=== PATIENT | male | born 1945 | race Caucasian/White ===

== ENCOUNTER 2018-05-02 10:43 | Inpatient (IN) | payer MEDICARE, BC ==
[~2018-05-02 10:43] MED LIST: Acetaminophen 325 MG Tab PO SCH; Acetaminophen/oxyCODONE 325-5 MG Tab PO PRN; Aspirin 325 MG Tab.EC PO SCH; Bisacodyl 5 MG Tab PO PRN; Bupivacaine 0.25% 30 ML SDV ONE; Cyclobenzaprine 10 MG Tab PO PRN; Docusate Sodium 100 MG Cap PO SCH; Iodine/Sodium Iodide 2% Tincture 30 ML Bottle ONE; Ketorolac 15 MG/ML SDV IVPUSH PRN; Lactated Ringers 1,000 ML IV SCH; Lidocaine 1%/Sod Bicarbonate in NS 8.4% 1 ML Syringe IDERM PRN; Magnesium Hydroxide 400 MG/5 ML Susp 30 ML Cup PO PRN; Morphine 2 MG/ML Syringe IVPUSH PRN; Morphine 4 MG/ML Syringe IVPUSH PRN; Morphine 8 MG, EPINEPHrine 0.3 MG, Cefuroxime 750 MG, Ketorolac 30 MG, Sodium Chloride ... ONE; Naloxone 0.4 MG/ML SDV IVPUSH PRN; Ondansetron 4 MG/2 ML SDV IVPUSH PRN; Pregabalin 25 MG Cap PO SCH; Sennosides 8.6 MG Tab PO PRN; Sodium Chloride 0.9% 10 ML Syringe FLUSH PRN; Vancomycin 1 GM SDV ONE; ceFAZolin 1 GM Vial ONE; ceFAZolin 2 GM in Premix Bag 1 BAG IV SCH; diphenhydrAMINE 50 MG/ML SDV IVPUSH PRN; oxyCODONE ER 10 MG TAB.ER PO SCH
[2018-05-02] MEDS ORDERED: Acetaminophen 325 MG Tab PO SCH (11:00)
[2018-05-02] MEDS ORDERED: Pregabalin 25 MG Cap PO SCH (11:00)
[2018-05-02] MEDS ORDERED: oxyCODONE ER 10 MG TAB.ER PO SCH (11:00)
[2018-05-02] MEDS ORDERED: Lidocaine 1%/Sod Bicarbonate in NS 8.4% 1 ML Syringe IDERM PRN (11:18)
[2018-05-02] MEDS ORDERED: Sodium Chloride 0.9% 10 ML Syringe FLUSH PRN (11:18)
[2018-05-02] MEDS ORDERED: Propranolol 60 MG Cap.ER PO SCH (11:29)
[2018-05-02] MEDS ORDERED: Lactated Ringers 1,000 ML IV SCH (11:30)
[2018-05-02] MEDS ORDERED: Lidocaine 1% 4 ML ONE (11:35)
[2018-05-02] MEDS ORDERED: Ketamine 500 mg/10 ML MDV ONE (11:35)
[2018-05-02] MEDS ORDERED: Propofol 200 MG/20 ML SDV ONE ×2 (11:35→12:24)
[2018-05-02] MEDS ORDERED: Midazolam 1 MG/ML 2 ML SDV ONE (11:35)
[2018-05-02] MEDS ORDERED: fentaNYL 100 MCG/2 ML SDV ONE (11:35)
[2018-05-02] MEDS ORDERED: ceFAZolin 1 GM Vial ONE ×2 (11:35→12:35)
--- NOTE | 2018-05-02 11:35 | PCM.PREANE ---
Preanesthetic Assessment - Procedure Proposed Procedure: right total knee - Anesthesia/Transfusion/Family Hx Anesthesia History: Prior Anesthesia Without Reaction Family History of Anesthesia Reaction: No Transfusion History: No Prior Transfusion(s) - Review of Systems General: No Symptoms Pulmonary: No Symptoms Cardiovascular: No Symptoms Gastrointestinal: No Symptoms Neurological: No Symptoms Other: Reports: Thyroid Problems, Sinus Problem (stuffy at times) - Physical Assessment NPO Status Date: 05/02/18 NPO Status Time: 02:00 O2 Sat by Pulse Oximetry: 95 Respiratory Rate: 20 Vital Signs: Last Vital Signs Temp 99.5 F 05/02/18 10:55 Pulse 78 05/02/18 10:55 Resp 20 05/02/18 10:55 BP 150/86 H 05/02/18 10:55 Pulse Ox 95 05/02/18 10:55 Height: 5 ft 10 in Weight: 92.986 kg ASA Class: 3 Mental Status: Alert & Oriented x3 Airway Class: Mallampati = 1 Dentition: Reports: Normal Dentition (front teeth are capped and sometimes come off) Thyro-Mental Finger Breadths: 3 Mouth Opening Finger Breadths: 3 ROM/Head Extension: Full Lungs: Clear to Auscultation, Normal Respiratory Effort Cardiovascular: Regular Rate, Regular Rhythm - Allergies Allergies/Adverse Reactions: Allergies Allergy/AdvReac Type Severity Reaction Status Date / Time No Known Allergies Allergy Verified 05/01/18 14:11 - Blood Blood Available: No - Anesthesia Plan Beta Jose: Propranolol Med Last Dose Date: 05/02/18 Med Last Dose Time: 11:45 - Acknowledgements Anesthesia Type Planned: Spinal Pt an Appropriate Candidate for the Planned Anesthesia: Yes Alternatives and Risks of Anesthesia Discussed w Pt/Guardian: Yes Pt/Guardian Understands and Agrees with Anesthesia Plan: Yes PreAnesthesia Questionnaire HEENT History: Reports: Impaired Vision, Other (See Below) Other HEENT History: wears glasses, has looth teeth Cardiovascular History: Reports: High Cholesterol, Hypertension, Other (See Below) Other Cardiovascular History: hyperlipidemia, hyponatremia Respiratory History: Reports: Sleep Apnea, SOB Gastrointestinal History: Reports: None Genitourinary History: Reports: BPH, Renal Calculus Other Genitourinary History: Nocturia, Cystine, [employer]GER [employer] History: Reports: None Musculoskeletal History: Reports: Osteoarthritis, Other (See Below) Other Musculoskeletal History: right knee degenerative joing disease Neurological History: Reports: Other (See Below) Other Neuro History: tremors Psychiatric History: Reports: None Endocrine/Metabolic History: Reports: Hypothyroidism Hematologic History: Reports: None Immunologic History: Reports: None Oncologic (Cancer) History: Reports: None Dermatologic History: Reports: Psoriasis, Urticaria - Past Surgical History Head Surgeries/Procedures: Reports: None Cardiovascular Surgical History: Reports: None Respiratory Surgical History: Reports: None GI Surgical History: Reports: Colonoscopy, EGD Male Surgical History: Reports: Lithotripsy (ESWL), Other (See Below) Other Male Surgeries/Procedures: urethra stent, multiple surgeries for kidney stones Endocrine Surgical History: Reports: Parathyroidectomy Neurological Surgical History: Reports: None Oncologic Surgical History: Reports: None Dermatological Surgical History: Reports: None - SUBSTANCE USE Smoking Status *Q: Former Smoker (stopped 1979) Tobacco Use Within Last Twelve Months: No, Snuff/Dip (chewed today) Second Hand Smoke Exposure: No Days Per Week of Alcohol Use: 7 (beer) Number of Drinks Per Day: 1 Total Drinks Per Week: 7 Recreational Drug Use History: No - HOME MEDS Home Medications: Home Meds Acetaminophen/oxyCODONE [Percocet 325-5 MG] 1 - 2 tab PO Q6H PRN 03/29/18 [ History] Amoxicillin 500 mg PO ASDIRECTED 03/29/18 [History] Aspirin [Ecotrin] 325 mg PO BID 03/29/18 [History] Clobetasol [Clobetasol 0.05%] 1 dose TOP BID PRN 03/29/18 [History] Finasteride 5 mg PO 1200 03/29/18 [History] Levothyroxine 125 mcg PO DAILY 03/29/18 [History] Lisinopril 10 mg PO DAILY 03/29/18 [History] Propranolol [Inderal] 60 mg PO DAILY 03/29/18 [History] Simvastatin [Zocor] 20 mg PO BEDTIME 03/29/18 [History] Tamsulosin [Flomax] 0.4 mg PO 1200 03/29/18 [History] amLODIPine Besylate [Amlodipine Besylate] 5 mg PO BEDTIME 03/29/18 [History] Citric Acid/Sodium Citrate [Sod Citrate-Citric Acid Soln] 30 ml PO TID 05/01/18 [History] Sodium Bicarbonate 650 mg PO BID 05/01/18 [History] Acetaminophen/oxyCODONE [Percocet 325-5 MG] 1 - 2 tab PO Q6H PRN #60 tablet 07/13 [Rx] Aspirin [Ecotrin] 325 mg PO BID #84 tab.ec 05/03/18 [Rx] Bisacodyl [Dulcolax] 5 mg PO DAILY PRN tablet 05/03/18 [Rx] Docusate Sodium [Colace] 100 mg PO BID cap 05/03/18 [Rx] Famotidine [Pepcid] 20 mg PO Q12H tablet 05/03/18 [Rx] Magnesium Hydroxide [Milk of Magnesia] 30 ml PO BID PRN cup 05/03/18 [Rx] Sennosides [Senna] 8.6 mg PO BID PRN tablet 05/03/18 [Rx] - CURRENT (IN HOUSE) MEDS Current Meds: Current Medications Acetaminophen (Tylenol) 975 mg PO ONETIME MICHAEL Aspirin (Ecotrin) 325 mg PO BID MICHAEL Bisacodyl (Dulcolax) 5 mg PO DAILY PRN PRN Reason: Constipation Cyclobenzaprine HCl (Flexeril) 10 mg PO TID PRN PRN Reason: Spasms Docusate Sodium (Colace) 100 mg PO BID MICHAEL Famotidine (Pepcid) 20 mg PO Q12H [facility] Cefazolin Sodium/Dextrose 2 gm (/ Premix) 50 mls @ 100 mls/hr IV Q8H [facility] Stop: 05/02/18 23:44 Lactated Ringer's (Ringers, Lactated) 1,000 mls @ 125 mls/hr IV ASDIRECTED [facility] Last Admin: 05/02/18 11:15 Dose: 125 mls/hr Ketorolac Tromethamine (Toradol) 15 mg IVPUSH Q6H PRN PRN Reason: Pain Lidocaine/Sodium Bicarbonate (Buffered Lidocaine 1% In Ns 8.4%) 0.25 ml IDERM ONETIME PRN PRN Reason: Prior to IV Start Stop: 05/02/18 16:00 Last Admin: 05/02/18 11:09 Dose: 0.25 ml Magnesium Hydroxide (Milk Of Magnesia) 30 ml PO BID PRN PRN Reason: Constipation Morphine Sulfate (Morphine) 2 mg IVPUSH Q2H PRN PRN Reason: Breakthrough Pain Naloxone HCl (Narcan) 0.1 mg IVPUSH Q5M PRN PRN Reason: Oversedation Ondansetron HCl (Zofran) 4 mg IVPUSH Q6H PRN PRN Reason: Nausea/Vomiting Oxycodone HCl (Oxycontin) 10 mg PO ONETIME [facility] Oxycodone/Acetaminophen (Percocet 325-5 Mg) 1 - 2 tab PO Q4H PRN PRN Reason: Pain Pregabalin (Lyrica) 50 mg PO ONETIME [facility] Propranolol HCl (Inderal La) 60 mg PO ONETIME [facility] Senna (Senna) 8.6 mg PO BID PRN PRN Reason: Constipation Sodium Chloride (Saline Flush) 10 ml FLUSH ASDIRECTED PRN PRN Reason: Keep Vein Open Discontinued Medications Acetaminophen (Tylenol) 975 mg PO ONETIME [facility] Stop: 04/01/18 18:00 Aspirin (Ecotrin) 325 mg PO BID [facility] Bisacodyl (Dulcolax) 5 mg PO DAILY PRN PRN Reason: Constipation Bupivacaine HCl (Marcaine 0.25%) Confirm Administered Dose 30 ml .ROUTE .STK- MED ONE Stop: 04/01/18 08:28 Cefazolin Sodium (Ancef) Confirm Administered Dose 2 gm .ROUTE .STK-MED ONE Stop: 04/01/18 08:28 Morphine Sulfate 8 mg/Epinephrine HCl 0.3 mg/Cefuroxime Sodium 750 mg/Ketorolac Tromethamine 30 mg/Sodium Chloride 27.9 ml 0 mg .XX ONETIME ONE Stop: 04/01/18 10:01 Morphine Sulfate 8 mg/Epinephrine HCl 0.3 mg/Cefuroxime Sodium 750 mg/Ketorolac Tromethamine 30 mg/Sodium Chloride 27.9 ml 0 mg .XX ONETIME ONE Stop: 05/02/18 07:09 Morphine Sulfate 8 mg/Epinephrine HCl 0.3 mg/Cefuroxime Sodium 750 mg/Ketorolac Tromethamine 30 mg/Sodium Chloride 27.9 ml 0 mg .XX ONETIME ONE Stop: 05/02/18 07:31 Cyclobenzaprine HCl (Flexeril) 10 mg PO TID PRN PRN Reason: Spasms Diphenhydramine HCl (Benadryl) 25 mg IVPUSH Q4H PRN PRN Reason: Nausea Docusate Sodium (Colace) 100 mg PO BID [facility] Lactated Ringer's (Ringers, Lactated) 1,000 mls @ 125 mls/hr IV ASDIRECTED [facility] Stop: 04/01/18 23:00 Cefazolin Sodium/Dextrose 2 gm (/ Premix) 50 mls @ 100 mls/hr IV Q8H [facility] Stop: 04/01/18 23:14 Iodine (Iodine 2% Mild Tincture) Confirm Administered Dose 30 ml .ROUTE .STK- MED ONE Stop: 04/01/18 08:28 Ketorolac Tromethamine (Toradol) 15 mg IVPUSH Q6H PRN PRN Reason: Pain Lidocaine/Sodium Bicarbonate (Buffered Lidocaine 1% In Ns 8.4%) 0.25 ml IDERM ONETIME PRN PRN Reason: Prior to IV Start Stop: 04/01/18 18:00 Magnesium Hydroxide (Milk Of Magnesia) 30 ml PO BID PRN PRN Reason: Constipation Morphine Sulfate (Morphine) 2 mg IVPUSH Q2H PRN PRN Reason: Breakthrough Pain Naloxone HCl (Narcan) 0.1 mg IVPUSH Q5M PRN PRN Reason: Oversedation Ondansetron HCl (Zofran) 4 mg IVPUSH Q6H PRN PRN Reason: Nausea/Vomiting Oxycodone HCl (Oxycontin) 10 mg PO ONETIME [facility] Stop: 04/01/18 18:00 Oxycodone/Acetaminophen (Percocet 325-5 Mg) 1 - 2 tab PO Q4H PRN PRN Reason: Pain Pregabalin (Lyrica) 50 mg PO ONETIME [facility] Stop: 04/01/18 18:00 Senna (Senna) 8.6 mg PO BID PRN PRN Reason: Constipation Sodium Chloride (Saline Flush) 10 ml FLUSH ASDIRECTED PRN PRN Reason: Keep Vein Open Stop: 04/01/18 18:00 Tranexamic Acid (Cyklokapron) Confirm Administered Dose 1,000 mg .ROUTE .STK- MED ONE Stop: 04/01/18 08:27 Vancomycin HCl (Vancomycin) Confirm Administered Dose 1 gm .ROUTE .STK-MED ONE Stop: 04/01/18 08:27
[2018-05-02] MEDS ORDERED: EPINEPHrine 1 MG/ML SDV ONE (12:18)
[2018-05-02] MEDS ORDERED: Ropivacaine 0.5% 5 MG/ML 30 ML SDV ONE (12:18)
[2018-05-02] MEDS ORDERED: Vancomycin 1 GM SDV ONE (12:35)
[2018-05-02] MEDS ORDERED: Bupivacaine 0.25% 30 ML SDV ONE (12:35)
[2018-05-02] MEDS ORDERED: Iodine/Sodium Iodide 2% Tincture 30 ML Bottle ONE (12:35)
--- NOTE | 2018-05-02 12:38 | PCM.CONS ---
H&P History of Present Illness - General Date of Service: 05/02/18 Admit Problem/Dx: Admission Diagnosis/Problem Admission Diagnosis/Problem Osteoarthritis of knee Source of Information: Patient, Old Records, Provider History Limitations: Reports: No Limitations - History of Present Illness Initial Comments - Free Text/Narative: Phillip is a 73 yo male patient of Dr. Finley who is post-operative day 0 of R TKA. Hospital medicine was consulted for post-operative medical care. At this time he is stable. Pain is controlled. He denies any chest pain, shortness of breath, palpitations, nausea, or vomiting. He carries a history of: Renal stones , HTN, psoriasis, BPH, HLD, SUNG, hyperkalemia, fatigue, raynauds, tremors of the right hand, hyponatremia, hypothyroid, sleep apnea. Former smoker-quit in 1979. He is a full code. His primary care provider is Mario Javed. - Related Data Allergies/Adverse Reactions: Allergies Allergy/AdvReac Type Severity Reaction Status Date / Time No Known Allergies Allergy Verified 05/01/18 14:11 Home Medications: Home Meds Acetaminophen/oxyCODONE [Percocet 325-5 MG] 1 - 2 tab PO Q6H PRN 03/29/18 [ History] Amoxicillin 500 mg PO ASDIRECTED 03/29/18 [History] Aspirin [Ecotrin] 325 mg PO BID 03/29/18 [History] Clobetasol [Clobetasol 0.05%] 1 dose TOP BID PRN 03/29/18 [History] Finasteride 5 mg PO 1200 03/29/18 [History] Ibuprofen [Advil] 200 mg PO ASDIRECTED PRN 03/29/18 [History] Levothyroxine 125 mcg PO DAILY 03/29/18 [History] Lisinopril 10 mg PO DAILY 03/29/18 [History] Propranolol [Inderal] 60 mg PO DAILY 03/29/18 [History] Simvastatin [Zocor] 20 mg PO BEDTIME 03/29/18 [History] Tamsulosin [Flomax] 0.4 mg PO 1200 03/29/18 [History] amLODIPine Besylate [Amlodipine Besylate] 5 mg PO BEDTIME 03/29/18 [History] Citric Acid/Sodium Citrate [Sod Citrate-Citric Acid Soln] 30 ml PO TID 05/01/18 [History] Sodium Bicarbonate 650 mg PO BID 05/01/18 [History] Past Medical History HEENT History: Reports: Impaired Vision, Other (See Below) Other HEENT History: wears glasses, has looth teeth Cardiovascular History: Reports: High Cholesterol, Hypertension, Other (See Below) Other Cardiovascular History: hyperlipidemia, hyponatremia Respiratory History: Reports: Sleep Apnea, SOB Gastrointestinal History: Reports: None Genitourinary History: Reports: BPH, Renal Calculus Other Genitourinary History: Nocturia, Cystine, [employer]PUT[employer] CONSULTANT History: Reports: None Musculoskeletal History: Reports: Osteoarthritis, Other (See Below) Other Musculoskeletal History: right knee degenerative joing disease Neurological History: Reports: Other (See Below) Other Neuro History: tremors Psychiatric History: Reports: None Endocrine/Metabolic History: Reports: Hypothyroidism Hematologic History: Reports: None Immunologic History: Reports: None Oncologic (Cancer) History: Reports: None Dermatologic History: Reports: Psoriasis, Urticaria - Past Surgical History Head Surgeries/Procedures: Reports: None Cardiovascular Surgical History: Reports: None Respiratory Surgical History: Reports: None GI Surgical History: Reports: Colonoscopy, EGD Male Surgical History: Reports: Lithotripsy (ESWL), Other (See Below) Other Male Surgeries/Procedures: urethra stent, multiple surgeries for kidney stones Endocrine Surgical History: Reports: Parathyroidectomy Neurological Surgical History: Reports: None Oncologic Surgical History: Reports: None Dermatological Surgical History: Reports: None Social & Family History - Tobacco Use Smoking Status *Q: Former Smoker (stopped 1979) Second Hand Smoke Exposure: No - Caffeine Use Caffeine Use: Reports: Coffee, Soda - Alcohol Use Days Per Week of Alcohol Use: 7 (beer) Number of Drinks Per Day: 1 Total Drinks Per Week: 7 - Recreational Drug Use Recreational Drug Use: No Drug Use in Last 12 Months: No H&P Review of Systems - Review of Systems: Review Of Systems: See Below General: Reports: No Symptoms. Denies: Fever, Chills HEENT: Reports: No Symptoms Pulmonary: Reports: No Symptoms. Denies: Shortness of Breath, Pleuritic Chest Pain, Cough Cardiovascular: Reports: Blood Pressure Problem. Denies: Chest Pain, Palpitations, Dyspnea on Exertion, Edema Gastrointestinal: Reports: No Symptoms. Denies: Abdominal Pain, Diarrhea, Nausea, Vomiting Genitourinary: Reports: No Symptoms. Denies: Dysuria, Frequency, Burning, Pain , Urgency Musculoskeletal: Reports: No Symptoms. Denies: Leg Pain Skin: Reports: Change in Hair/Nails (some blackening of a few finger nails, not sure what caused it, no pain), Other (No hair on legs bilaterally, chronic per pt) Psychiatric: Reports: No Symptoms Neurological: Reports: Numbness (s/p R TKA, medication wearing off). Denies: Tingling Hematologic/Lymphatic: Reports: No Symptoms Immunologic: Reports: No Symptoms Exam - Exam Exam: See Below - Vital Signs Vital Signs: Last Vital Signs Temp 99.5 F 05/02/18 11:47 Pulse 78 05/02/18 10:55 Resp 20 05/02/18 11:49 BP 150/86 H 05/02/18 10:55 Pulse Ox 95 05/02/18 11:49 Weight: 205 lb - Exam Quality Assessment: Urinary Catheter, DVT Prophylaxis. No: Supplemental Oxygen General: Alert, Oriented, Cooperative, Mild Distress HEENT: Conjunctiva Clear, EACs Clear, EOMI, Hearing Intact, Mucosa Moist & [place] , Nares Patent, Normal Nasal Septum, Posterior Pharynx Clear, Pupils Equal, Pupils Reactive, TMs Clear, PERRLA Neck: Supple, Trachea Midline, 2 Lungs: Clear to Auscultation, Normal Respiratory Effort Cardiovascular: Regular Rate, Regular Rhythm GI/Abdominal Exam: Normal Bowel Sounds, Soft, Non-Tender, No Organomegaly, No Distention, No Abnormal Bruit, No Mass, Pelvis Stable (Male) Exam: Deferred Rectal (Males) Exam: Deferred Back Exam: Normal Inspection, Full Range of Motion, NT Extremities: Normal Inspection, Non-Tender, No Pedal Edema, Normal Capillary Refill, Limited Range of Motion (s/p R TKA), Other (Lack of hair on lower extremities bilaterally; blackened finger nails). No: Leg Pain Peripheral Pulses: 1+: Posterior Tibial (L), Posterior Tibial (R), Dorsalis Pedis (L), Dorsalis Pedis (R) Skin: Warm, Dry, Intact, Other (bandage dry and intact, no drainage) Neurological: Cranial Nerves Intact (grossly). No: Sensation Intact (s/p R TKA , medication wearing off) Neuro Extensive - Mental Status: Alert, Oriented x3, Normal Mood/Affect, Normal Cognition, Memory Intact Psychiatric: Alert, Normal Affect, Normal Mood - Patient Data Lab Results Last 24 hrs: Laboratory Results - last 24 hr 05/02/18 Range/Units 12:05 WBC 6.60 (4.23-9.07) K/mm3 RBC 4.48 L (4.63-6.08) M/mm3 Hgb 13.8 (13.7-17.5) gm/L Hct 39.8 L (40.1-51.0) % MCV 88.8 (79.0-92.2) fl MCH 30.8 (25.7-32.2) pg MCHC 34.7 (32.2-35.5) g/dl RDW Std Deviation 44.0 H (35.1-43.9) fL Plt Count 200 (163-337) K/mm3 MPV 8.8 L (9.4-12.3) fl Neut % (Auto) 58.8 (34.0-67.9) % Lymph % (Auto) 25.2 (21.8-53.1) % [place] % (Auto) 12.7 H (5.3-12.2) % Eos % (Auto) 2.6 (0.8-7.0) Baso % (Auto) 0.5 (0.1-1.2) % Neut # (Auto) 3.89 (1.78-5.38) K/mm3 Lymph # (Auto) 1.66 (1.32-3.57) K/mm3 [place] # (Auto) 0.84 H (0.30-0.82) K/mm3 Eos # (Auto) 0.17 (0.04-0.54) K/mm3 Baso # (Auto) 0.03 (0.01-0.08) K/mm3 Result Diagrams: 05/02/18 12:05 05/02/18 12:05 Consult PN Assessment/Plan POD#: 0 (1) Status post total right knee replacement SNOMED Code(s): 4986333025373 Code(s): Z96.651 - PRESENCE OF RIGHT ARTIFICIAL KNEE JOINT Priority: High Current Visit: Yes (2) Osteoarthritis SNOMED Code(s): 382795661 Code(s): M19.90 - UNSPECIFIED OSTEOARTHRITIS, UNSPECIFIED SITE Priority: High Current Visit: Yes Qualifiers: Osteoarthritis location: knee Osteoarthritis type: unspecified Laterality : unspecified laterality Qualified Code(s): M17.10 - Unilateral primary osteoarthritis, unspecified knee (3) HTN (hypertension) SNOMED Code(s): 88788641 Code(s): I10 - ESSENTIAL (PRIMARY) HYPERTENSION Priority: High Current Visit: Yes Qualifiers: Hypertension type: unspecified Qualified Code(s): I10 - Essential (primary ) hypertension (4) HLD (hyperlipidemia) SNOMED Code(s): 10818091 Code(s): E78.5 - HYPERLIPIDEMIA, UNSPECIFIED Priority: Medium Current Visit: No Qualifiers: Hyperlipidemia type: unspecified Qualified Code(s): E78.5 - Hyperlipidemia , unspecified (5) Renal stones SNOMED Code(s): 92521427 Code(s): N20.0 - CALCULUS OF KIDNEY Priority: Low Current Visit: No (6) Hyperkalemia SNOMED Code(s): 81096954 Code(s): E87.5 - HYPERKALEMIA Priority: Low Current Visit: No (7) Raynauds disease SNOMED Code(s): 345879451 Code(s): I73.00 - RAYNAUD'S SYNDROME WITHOUT GANGRENE Priority: Low Current Visit: Yes Qualifiers: Raynaud?s-associated gangrene presence: without gangrene Qualified Code(s) : I73.00 - Raynaud's syndrome without gangrene (8) Tremor of right hand SNOMED Code(s): 266264010, 101360788 Code(s): R25.1 - TREMOR, UNSPECIFIED Priority: Low Current Visit: Yes (9) Hyponatremia SNOMED Code(s): 32463804 Code(s): E87.1 - HYPO-OSMOLALITY AND HYPONATREMIA Priority: Medium Current Visit: No (10) Hypothyroid SNOMED Code(s): 81497700 Code(s): E03.9 - HYPOTHYROIDISM, UNSPECIFIED Priority: Low Current Visit : Yes Qualifiers: Hypothyroidism type: unspecified Qualified Code(s): E03.9 - Hypothyroidism , unspecified (11) Sleep apnea SNOMED Code(s): 84373755 Code(s): G47.30 - SLEEP APNEA, UNSPECIFIED Priority: High Current Visit: Yes Qualifiers: Sleep apnea type: unspecified type Qualified Code(s): G47.30 - Sleep apnea , unspecified Problem List Initiated/Reviewed/Updated: Yes Plan: I/P: Acute: S/P right total knee arthroplasty - post-operative day 0 -DVT prophylaxis and pain management per primary care team -PT/OT -IS/RT -Monitor oxygen saturation -Titrate oxygen as needed -Vital signs stable -Monitor labs -Pre-operative Hgb was 15.4, eGFR 69 Osteoarthritis of knee -Pain management per primary care team Chronic: Renal stones HTN Psoriasis BPH HLD SUNG Hyperkalemia Fatigue Raynauds Tremors of the right hand Hyponatremia Hypothyroid Sleep apnea Plan: CM for discharge planning GI prophylaxis: Pepcid DVT/PE prophylaxis: KACY shahid, SCD, ASA Home medications as indicated Other orders as listed above Routine AM labs He is a full code. His PCP is Mario Javed. Thank you for allowing us to participate in the care of this patient!!
[2018-05-02] MEDS ORDERED: ePHEDrine 50 MG/ML SDV IVPUSH PRN (14:23)
[2018-05-02] MEDS ORDERED: fentaNYL 100 MCG/2 ML SDV IVPUSH PRN (14:23)
[2018-05-02] MEDS ORDERED: diphenhydrAMINE 50 MG/ML SDV IVPUSH PRN (14:23)
[2018-05-02] MEDS ORDERED: Ondansetron 4 MG/2 ML SDV IVPUSH PRN (14:23)
[2018-05-02] MEDS ORDERED: HYDROmorphone 0.5 MG/0.5 ML Syringe IVPUSH PRN (14:23)
[2018-05-02] MEDS ORDERED: Lactated Ringers 1,000 ML ONE ×2 (14:41)
[2018-05-02] MEDS ORDERED: ePHEDrine/Normal Saline 25 MG/5 ML Syringe ONE (14:44)
[2018-05-02] MEDS ORDERED: Clobetasol 0.05% Crm 30 GM Tube TOP PRN (15:18)
--- NOTE | 2018-05-02 15:27 | PCM.POSTAN ---
POST ANESTHESIA ASSESSMENT - MENTAL STATUS Mental Status: Alert, Oriented - VITAL SIGNS Pulse Rate: 63 SaO2: 94 Resp Rate: 16 Blood Pressure: 110/61 Temperature: 36.5 C - RESPIRATORY Respiratory Status: Respiratory Rate WNL, Airway Patent, O2 Saturation Stable, Supplemental Oxygen - CARDIOVASCULAR CV Status: Pulse Rate WNL, Blood Pressure Stable - GASTROINTESTINAL GI Status: No Symptoms - PAIN Pain Score: 0 - POST OP HYDRATION Hydration Status: Adequate & Stable
--- NOTE | 2018-05-02 15:46 | PCM.SN ---
- Free Text/Narrative Note: Right selective femoral nerve block at the adductor canal for post-procedure pain control Time Out: 1529 Start: 1529 End: 1536 Chart reviewed. Consent signed. Questions answered. Appropriate monitors applied. Time out performed. Right mid-shaft femur evaluated with ultrasound. Scanning medially femur, I was able to identify the femoral artery in the adductor canal. The saphenous nerve was lateral to the artery. The skin was prepped lateral to the ultrasound probe with chlorahexadine. The 21ga 4 insulated block needle was inserted under direct ultrasound guidance into the adductor canal. 25mL of 0.5% ropivacaine with 1:200,000 epinephrine was injected cirmcumferentially about the nerve with intermittent negative aspiration every 5mL. Patient tolerated the procedure well. See pictures on progress note and vital signs on nurses notes. Block completed postoperatively. Bob Sacnhez SPECIAL OFFICER
[2018-05-02] MEDS: ceFAZolin 2 GM in Premix Bag 1 BAG IV SCH (18:46)
[2018-05-02] MEDS: Acetaminophen/oxyCODONE 325-5 MG Tab PO PRN (20:07)
[2018-05-02] MEDS ORDERED: Morphine 2 MG/ML Syringe IVPUSH PRN (20:42)
[2018-05-02] MEDS ORDERED: Cyclobenzaprine 10 MG Tab PO PRN (20:42)
[2018-05-02] MEDS: Citric Acid/Sodium Citrate Solution 30 ML Cup PO SCH (21:06)
[2018-05-02] MEDS: Sodium Bicarbonate 650 MG Tab PO SCH (21:07)
[2018-05-02] MEDS: Simvastatin 20 MG Tab PO SCH (21:07)
[2018-05-02] MEDS: amLODIPine 5 MG Tab PO SCH (21:07)
[2018-05-02] MEDS: Docusate Sodium 100 MG Cap PO SCH (21:08)
[2018-05-02] MEDS: Ketorolac 15 MG/ML SDV IVPUSH PRN (21:08)
[2018-05-02] MEDS: Aspirin 325 MG Tab.EC PO SCH (22:27)
[2018-05-02] MEDS: Famotidine 20 MG Tab PO SCH (22:27)
[2018-05-03] MEDS: Acetaminophen/oxyCODONE 325-5 MG Tab PO PRN ×2 (03:10→09:01)
[2018-05-03] MEDS: Ketorolac 15 MG/ML SDV IVPUSH PRN ×3 (03:13→22:13)
[2018-05-03] MEDS: ceFAZolin 2 GM in Premix Bag 1 BAG IV SCH ×2 (04:27→10:31)
[2018-05-03] MEDS: Levothyroxine 125 MCG Tab PO SCH (06:19)
--- NOTE | 2018-05-03 06:33 | PCM.SN ---
- Free Text/Narrative Note: Patient seen and examined at bedside. He slept good last night and reports no acute issues. However he tells me his pain is not well controlled but he looks comfortable and in no acute distress. His overall vitals appear to be fairly stable. From the hospitalist standpoint, patient looks clinically stable and relatively fine. We are now signing off on his case. Please feel free to call us for any questions or concerns.
--- NOTE | 2018-05-03 08:28 | PCM48HPAN ---
Post Anesthesia Note - EVALUATION WITHIN 48HRS OF ANESTHETIC Vital Signs in Normal Range: Yes Patient Participated in Evaluation: Yes Respiratory Function Stable: Yes Airway Patent: Yes Cardiovascular Function Stable: Yes Hydration Status Stable: Yes Pain Control Satisfactory: Yes Nausea and Vomiting Control Satisfactory: Yes Mental Status Recovered: Yes
--- NOTE | 2018-05-03 08:53 | PCM.SURGPN ---
- General Info Date of Service: 05/03/18 POD#: 1 Functional Status: Reports: Pain Controlled, Tolerating Diet, Ambulating, Urinating, Incentive Spirometry, Other (The pt states he is doing well - "just tired".) - Patient Data Vitals - Most Recent: Last Vital Signs Temp 98.1 F 05/03/18 04:35 Pulse 64 05/03/18 04:36 Resp 20 05/03/18 04:35 BP 99/47 L 05/03/18 04:35 Pulse Ox 92 L 05/03/18 04:36 Weight - Most Recent: 205 lb I&O - Last 24 Hours: Intake & Output 05/02/18 05/03/18 05/03/18 22:59 06:59 14:59 Intake Total 300 800 Output Total 250 1300 Balance 50 -500 Lab Results Last 24 Hrs: Laboratory Results - last 24 hr 05/02/18 05/02/18 05/03/18 Range/Units 12:05 12:05 06:00 WBC 6.60 (4.23-9.07) K/mm3 RBC 4.48 L (4.63-6.08) M/mm3 Hgb 13.8 (13.7-17.5) gm/L Hct 39.8 L (40.1-51.0) % MCV 88.8 (79.0-92.2) fl MCH 30.8 (25.7-32.2) pg MCHC 34.7 (32.2-35.5) g/dl RDW Std Deviation 44.0 H (35.1-43.9) fL Plt Count 200 (163-337) K/mm3 MPV 8.8 L (9.4-12.3) fl Neut % (Auto) 58.8 (34.0-67.9) % Lymph % (Auto) 25.2 (21.8-53.1) % Dawes % (Auto) 12.7 H (5.3-12.2) % Eos % (Auto) 2.6 (0.8-7.0) Baso % (Auto) 0.5 (0.1-1.2) % Neut # (Auto) 3.89 (1.78-5.38) K/mm3 Lymph # (Auto) 1.66 (1.32-3.57) K/mm3 Dawes # (Auto) 0.84 H (0.30-0.82) K/mm3 Eos # (Auto) 0.17 (0.04-0.54) K/mm3 Baso # (Auto) 0.03 (0.01-0.08) K/mm3 Sodium 137 138 (136-145) mEq/L Potassium 3.4 L 3.6 (3.5-5.1) mEq/L Chloride 104 105 (98-107) mEq/L Carbon Dioxide 23 24 (21-32) mEq/L Anion Gap 13.4 12.6 (5-15) BUN 19 H (7-18) mg/dL Creatinine 1.1 (0.7-1.3) mg/dL Est Cr Clr Drug Dosing 62.68 mL/min Estimated GFR (MDRD) > 60 (>60) mL/min BUN/Creatinine Ratio 17.3 (14-18) Glucose 101 (83-115) mg/dL Calcium 8.1 L (8.5-10.1) mg/dL Total Bilirubin 1.2 H (0.2-1.0) mg/dL AST 24 (15-37) U/L ALT 20 (16-63) U/L Alkaline Phosphatase 48 (46-116) U/L Total Protein 6.0 L (6.4-8.2) g/dl Albumin 2.9 L (3.4-5.0) g/dl Globulin 3.1 gm/dL Albumin/Globulin Ratio 0.9 L (1-2) /08/18 Range/Units 06:08 WBC 8.64 (4.23-9.07) K/mm3 RBC 4.02 L (4.63-6.08) M/mm3 Hgb 12.3 L (13.7-17.5) gm/L Hct 36.2 L (40.1-51.0) % MCV 90.0 (79.0-92.2) fl MCH 30.6 (25.7-32.2) pg MCHC 34.0 (32.2-35.5) g/dl RDW Std Deviation 43.7 (35.1-43.9) fL Plt Count 176 (163-337) K/mm3 MPV 9.4 (9.4-12.3) fl Neut % (Auto) (34.0-67.9) % Lymph % (Auto) (21.8-53.1) % Dawes % (Auto) (5.3-12.2) % Eos % (Auto) (0.8-7.0) Baso % (Auto) (0.1-1.2) % Neut # (Auto) (1.78-5.38) K/mm3 Lymph # (Auto) (1.32-3.57) K/mm3 Dawes # (Auto) (0.30-0.82) K/mm3 Eos # (Auto) (0.04-0.54) K/mm3 Baso # (Auto) (0.01-0.08) K/mm3 Sodium (136-145) mEq/L Potassium (3.5-5.1) mEq/L Chloride (98-107) mEq/L Carbon Dioxide (21-32) mEq/L Anion Gap (5-15) BUN (7-18) mg/dL Creatinine (0.7-1.3) mg/dL Est Cr Clr Drug Dosing mL/min Estimated GFR (MDRD) (>60) mL/min BUN/Creatinine Ratio (14-18) Glucose (83-115) mg/dL Calcium (8.5-10.1) mg/dL Total Bilirubin (0.2-1.0) mg/dL AST (15-37) U/L ALT (16-63) U/L Alkaline Phosphatase (46-116) U/L Total Protein (6.4-8.2) g/dl Albumin (3.4-5.0) g/dl Globulin gm/dL Albumin/Globulin Ratio (1-2) Med Orders - Current: Current Medications Amlodipine Besylate (Norvasc) 5 mg PO BEDTIME [facility] Last Admin: 05/02/18 21:07 Dose: 5 mg Aspirin (Ecotrin) 325 mg PO BID [facility] Last Admin: 05/02/18 22:27 Dose: 325 mg Bisacodyl (Dulcolax) 5 mg PO DAILY PRN PRN Reason: Constipation Citric Acid/Sodium Citrate (Bicitra Solution) 30 ml PO TID [facility] Last Admin: 05/02/18 21:06 Dose: 30 ml Cyclobenzaprine HCl (Flexeril) 10 mg PO TID PRN PRN Reason: Spasms Last Admin: 05/02/18 21:07 Dose: 10 mg Docusate Sodium (Colace) 100 mg PO BID [facility] Last Admin: 05/02/18 21:08 Dose: Not Given Famotidine (Pepcid) 20 mg PO Q12H [facility] Last Admin: 05/02/18 22:27 Dose: 20 mg Finasteride (Proscar) 5 mg PO DAILY@1200 MICHAEL Cefazolin Sodium/Dextrose 2 gm (/ Premix) 50 mls @ 100 mls/hr IV Q8H [facility] Stop: 05/03/18 11:59 Last Admin: 05/03/18 04:27 Dose: 100 mls/hr Lactated Ringer's (Ringers, Lactated) 1,000 mls @ 125 mls/hr IV ASDIRECTED [facility] Last Admin: 05/02/18 11:15 Dose: 125 mls/hr Ketorolac Tromethamine (Toradol) 15 mg IVPUSH Q6H PRN PRN Reason: Pain Last Admin: 05/03/18 03:13 Dose: 15 mg Levothyroxine Sodium (Levothyroxine) 125 mcg PO ACBRK [facility] Last Admin: 05/03/18 06:19 Dose: 125 mcg Lisinopril (Prinivil) 10 mg PO DAILY [facility] Magnesium Hydroxide (Milk Of Magnesia) 30 ml PO BID PRN PRN Reason: Constipation Morphine Sulfate (Morphine) 2 mg IVPUSH Q2H PRN PRN Reason: Breakthrough Pain Last Admin: 05/02/18 22:28 Dose: 2 mg Naloxone HCl (Narcan) 0.1 mg IVPUSH Q5M PRN PRN Reason: Oversedation Ondansetron HCl (Zofran) 4 mg IVPUSH Q6H PRN PRN Reason: Nausea/Vomiting Oxycodone/Acetaminophen (Percocet 325-5 Mg) 1 - 2 tab PO Q4H PRN PRN Reason: Pain Last Admin: 05/03/18 03:10 Dose: 2 tab Propranolol HCl (Inderal La) 60 mg PO DAILY [facility] Senna (Senna) 8.6 mg PO BID PRN PRN Reason: Constipation Simvastatin (Zocor) 20 mg PO BEDTIME [facility] Last Admin: 05/02/18 21:07 Dose: 20 mg Sodium Bicarbonate (Sodium Bicarbonate) 650 mg PO BID [facility] Last Admin: 05/02/18 21:07 Dose: 650 mg Sodium Chloride (Saline Flush) 10 ml FLUSH ASDIRECTED PRN PRN Reason: Keep Vein Open Tamsulosin HCl (Flomax) 0.4 mg PO DAILY@1200 [facility] Discontinued Medications Acetaminophen (Tylenol) 975 mg PO ONETIME [facility] Stop: 04/01/18 18:00 Acetaminophen (Tylenol) 975 mg PO ONETIME [facility] Last Admin: 05/02/18 11:47 Dose: 975 mg Aspirin (Ecotrin) 325 mg PO BID MICHAEL Bisacodyl (Dulcolax) 5 mg PO DAILY PRN PRN Reason: Constipation Bupivacaine HCl (Marcaine 0.25%) Confirm Administered Dose 30 ml .ROUTE .STK- MED ONE Stop: 04/01/18 08:28 Bupivacaine HCl (Marcaine 0.25%) Confirm Administered Dose 30 ml .ROUTE .STK- MED ONE Stop: 05/02/18 12:36 Last Admin: 05/02/18 14:46 Dose: 30 ml Cefazolin Sodium (Ancef) Confirm Administered Dose 2 gm .ROUTE .STK-MED ONE Stop: 04/01/18 08:28 Cefazolin Sodium (Ancef) Confirm Administered Dose 2 gm .ROUTE .STK-MED ONE Stop: 05/02/18 11:36 Last Admin: 05/02/18 14:40 Dose: 2 gm Cefazolin Sodium (Ancef) Confirm Administered Dose 2 gm .ROUTE .STK-MED ONE Stop: 05/02/18 12:36 Clobetasol Propionate (Clobetasol 0.05%) gm TOP BID PRN PRN Reason: psorosis Morphine Sulfate 8 mg/Epinephrine HCl 0.3 mg/Cefuroxime Sodium 750 mg/Ketorolac Tromethamine 30 mg/Sodium Chloride 27.9 ml 0 mg .XX ONETIME ONE Stop: 04/01/18 10:01 Morphine Sulfate 8 mg/Epinephrine HCl 0.3 mg/Cefuroxime Sodium 750 mg/Ketorolac Tromethamine 30 mg/Sodium Chloride 27.9 ml 0 mg .XX ONETIME ONE Stop: 05/02/18 07:09 Last Admin: 05/02/18 14:45 Dose: 788.3 mg Morphine Sulfate 8 mg/Epinephrine HCl 0.3 mg/Cefuroxime Sodium 750 mg/Ketorolac Tromethamine 30 mg/Sodium Chloride 27.9 ml 0 mg .XX ONETIME ONE Stop: 05/02/18 07:31 Last Admin: 05/02/18 18:24 Dose: Not Given Cyclobenzaprine HCl (Flexeril) 10 mg PO TID PRN PRN Reason: Spasms Cyclobenzaprine HCl (Flexeril) 10 mg PO TID PRN PRN Reason: Spasms Diphenhydramine HCl (Benadryl) 25 mg IVPUSH Q4H PRN PRN Reason: Nausea Diphenhydramine HCl (Benadryl) 25 mg IVPUSH Q6H PRN PRN Reason: Pruritis Stop: 05/02/18 18:00 Docusate Sodium (Colace) 100 mg PO BID MICHAEL Ephedrine Sulfate (Ephedrine Sulfate) 5 mg IVPUSH ASDIRECTED PRN PRN Reason: Hypotension Stop: 05/02/18 18:00 Ephedrine Sulfate (Ephedrine In Ns) Confirm Administered Dose 25 mg .ROUTE .STK- MED ONE Stop: 05/02/18 14:45 Epinephrine HCl (Adrenalin) Confirm Administered Dose 1 mg .ROUTE .STK-MED ONE Stop: 05/02/18 12:19 Fentanyl (Sublimaze) Confirm Administered Dose 100 mcg .ROUTE .STK-MED ONE Stop: 05/02/18 11:36 Fentanyl (Sublimaze) 50 mcg IVPUSH Q5M PRN PRN Reason: Pain Stop: 05/02/18 18:00 Hydromorphone HCl (Dilaudid) 0.5 mg IVPUSH ASDIRECTED PRN PRN Reason: Severe Pain Stop: 05/02/18 14:24 Lactated Ringer's (Ringers, Lactated) 1,000 mls @ 125 mls/hr IV ASDIRECTED MICHAEL Stop: 04/01/18 23:00 Cefazolin Sodium/Dextrose 2 gm (/ Premix) 50 mls @ 100 mls/hr IV Q8H [facility] Stop: 04/01/18 23:14 Lidocaine HCl (Xylocaine-Mpf 1%) Confirm Administered Dose 4 mls @ as directed .ROUTE .STK-MED ONE Stop: 05/02/18 11:36 Lactated Ringer's (Ringers, Lactated) Confirm Administered Dose 1,000 mls @ as directed .ROUTE .STK-MED ONE Stop: 05/02/18 14:42 Lactated Ringer's (Ringers, Lactated) Confirm Administered Dose 1,000 mls @ as directed .ROUTE .[facility]-MED ONE Stop: 05/02/18 14:42 Iodine (Iodine 2% Mild Tincture) Confirm Administered Dose 30 ml .ROUTE .STK- MED ONE Stop: 04/01/18 08:28 Iodine (Iodine 2% Mild Tincture) Confirm Administered Dose 30 ml .ROUTE .[facility]- MED ONE Stop: 05/02/18 12:36 Last Admin: 05/02/18 14:37 Dose: 18 ml Ketamine HCl (Ketalar) Confirm Administered Dose 500 mg .ROUTE .STK-MED ONE Stop: 05/02/18 11:36 Ketorolac Tromethamine (Toradol) 15 mg IVPUSH Q6H PRN PRN Reason: Pain Ketorolac Tromethamine (Toradol) 15 mg IVPUSH Q6H PRN PRN Reason: Pain Lidocaine/Sodium Bicarbonate (Buffered Lidocaine 1% In Ns 8.4%) 0.25 ml IDERM ONETIME PRN PRN Reason: Prior to IV Start Stop: 04/01/18 18:00 Lidocaine/Sodium Bicarbonate (Buffered Lidocaine 1% In Ns 8.4%) 0.25 ml IDERM ONETIME PRN PRN Reason: Prior to IV Start Stop: 05/02/18 16:00 Last Admin: 05/02/18 11:09 Dose: 0.25 ml Magnesium Hydroxide (Milk Of Magnesia) 30 ml PO BID PRN PRN Reason: Constipation Midazolam HCl (Versed 1 Mg/Ml) Confirm Administered Dose 2 mg .ROUTE .[facility]-MED ONE Stop: 05/02/18 11:36 Morphine Sulfate (Morphine) 2 mg IVPUSH Q2H PRN PRN Reason: Breakthrough Pain Morphine Sulfate (Morphine) 2 mg IVPUSH Q2H PRN PRN Reason: Breakthrough Pain Naloxone HCl (Narcan) 0.1 mg IVPUSH Q5M PRN PRN Reason: Oversedation Ondansetron HCl (Zofran) 4 mg IVPUSH Q6H PRN PRN Reason: Nausea/Vomiting Ondansetron HCl (Zofran) 4 mg IVPUSH ONETIME PRN PRN Reason: Nausea/Vomiting Stop: 05/02/18 18:00 Oxycodone HCl (Oxycontin) 10 mg PO ONETIME [facility] Stop: 04/01/18 18:00 Oxycodone HCl (Oxycontin) 10 mg PO ONETIME [facility] Last Admin: 05/02/18 11:46 Dose: 10 mg Oxycodone/Acetaminophen (Percocet 325-5 Mg) 1 - 2 tab PO Q4H PRN PRN Reason: Pain Oxycodone/Acetaminophen (Percocet 325-5 Mg) 1 - 2 tab PO Q4H PRN PRN Reason: Pain Pregabalin (Lyrica) 50 mg PO ONETIME [facility] Stop: 04/01/18 18:00 Pregabalin (Lyrica) 50 mg PO ONETIME [facility] Last Admin: 05/02/18 11:45 Dose: 50 mg Propofol (Diprivan 20 Ml) Confirm Administered Dose 600 mg .ROUTE .STK-MED ONE Stop: 05/02/18 11:36 Propofol (Diprivan 20 Ml) Confirm Administered Dose 200 mg .ROUTE .STK-MED ONE Stop: 05/02/18 12:25 Propranolol HCl (Inderal La) 60 mg PO ONETIME [facility] Stop: 05/02/18 13:00 Last Admin: 05/02/18 11:43 Dose: 60 mg Ropivacaine (Naropin 0.5%) Confirm Administered Dose 30 ml .ROUTE .STK-MED ONE Stop: 05/02/18 12:19 Senna (Senna) 8.6 mg PO BID PRN PRN Reason: Constipation Sodium Chloride (Saline Flush) 10 ml FLUSH ASDIRECTED PRN PRN Reason: Keep Vein Open Stop: 04/01/18 18:00 Tranexamic Acid (Cyklokapron) Confirm Administered Dose 1,000 mg .ROUTE .STK- MED ONE Stop: 04/01/18 08:27 Tranexamic Acid (Cyklokapron) Confirm Administered Dose 1,000 mg .ROUTE .STK- MED ONE Stop: 05/02/18 12:36 Last Admin: 05/02/18 14:52 Dose: 1,000 mg Vancomycin HCl (Vancomycin) Confirm Administered Dose 1 gm .ROUTE .STK-MED ONE Stop: 04/01/18 08:27 Vancomycin HCl (Vancomycin) Confirm Administered Dose 1 gm .ROUTE .STK-MED ONE Stop: 05/02/18 12:36 Last Admin: 05/02/18 14:47 Dose: 1 gm - Exam Wound/Incisions: Dressing Dry and Intact General: Alert, Cooperative, No Acute Distress Lungs: Normal Respiratory Effort Extremities: Other (Homans negative. NVS intact for RLE.) - Problem List Review Problem List Initiated/Reviewed/Updated: Yes - My Orders Last 24 Hours: Active Orders 24 hr Category Date Time Status Cooling Warming Measures [RC] ASDIRECTED Care 05/02/18 14:23 Inactive Oxygen Therapy [RC] ASDIRECTED Care 05/02/18 14:23 Active Pulse Oximetry [RC] ASDIRECTED Care 05/02/18 14:23 Active Ready for Discharge [RC] PER UNIT ROUTINE Care 05/03/18 08:36 Active Verify Patient Consent Obtain [RC] ASDIRECTED Care 05/02/18 11:18 Inactive Vital Signs [RC] Q15M Care 05/02/18 14:23 Inactive Regular Diet [DIET] Diet 05/02/18 Lunch Active Acetaminophen/oxyCODONE [Percocet 325-5 MG] Med 05/02/18 20:01 Active 1 - 2 tab PO Q4H PRN Aspirin [Ecotrin] Med 05/02/18 21:00 Active 325 mg PO BID Citric Acid/Sodium Citrate [Bicitra Solution] Med 05/02/18 21:00 Active 30 ml PO TID Cyclobenzaprine [Flexeril] Med 05/02/18 20:42 Active 10 mg PO TID PRN Docusate Sodium [Colace] Med 05/02/18 21:00 Active 100 mg PO BID Famotidine [Pepcid] Med 05/02/18 21:00 Active 20 mg PO Q12H Finasteride [Proscar] Med 05/03/18 12:00 Active 5 mg PO DAILY@1200 Ketorolac [Toradol] Med 05/02/18 20:42 Active 15 mg IVPUSH Q6H PRN Lactated Ringers [Ringers, Lactated] 1,000 ml Med 05/02/18 11:30 Active IV ASDIRECTED Levothyroxine Med 05/03/18 06:00 Active 125 mcg PO ACBRK Lisinopril [Prinivil] Med 05/03/18 09:00 Active 10 mg PO DAILY Morphine Med 05/02/18 20:42 Active 2 mg IVPUSH Q2H PRN Propranolol [Inderal LA] Med 05/03/18 09:00 Active 60 mg PO DAILY Simvastatin [Zocor] Med 05/02/18 21:00 Active 20 mg PO BEDTIME Sodium Bicarbonate Med 05/02/18 21:00 Active 650 mg PO BID Sodium Chloride 0.9% [Saline Flush] Med 05/02/18 11:18 Active 10 ml FLUSH ASDIRECTED PRN Tamsulosin [Flomax] Med 05/03/18 12:00 Active 0.4 mg PO DAILY@1200 amLODIPine [Norvasc] Med 05/02/18 21:00 Active 5 mg PO BEDTIME ceFAZolin [Ancef] 2 gm Med 05/02/18 19:30 Active Premix Bag 1 bag IV Q8H CPAP [RESPCARE] Routine Oth 05/02/18 17:01 Active Medication Orders Amlodipine Besylate (Norvasc) 5 mg PO BEDTIME [facility] Last Admin: 05/02/18 21:07 Dose: 5 mg Aspirin (Ecotrin) 325 mg PO BID [facility] Last Admin: 05/02/18 22:27 Dose: 325 mg Bisacodyl (Dulcolax) 5 mg PO DAILY PRN PRN Reason: Constipation Citric Acid/Sodium Citrate (Bicitra Solution) 30 ml PO TID [facility] Last Admin: 05/02/18 21:06 Dose: 30 ml Cyclobenzaprine HCl (Flexeril) 10 mg PO TID PRN PRN Reason: Spasms Last Admin: 05/02/18 21:07 Dose: 10 mg Docusate Sodium (Colace) 100 mg PO BID [facility] Last Admin: 05/02/18 21:08 Dose: Not Given Famotidine (Pepcid) 20 mg PO Q12H [facility] Last Admin: 05/02/18 22:27 Dose: 20 mg Finasteride (Proscar) 5 mg PO DAILY@1200 MICHAEL Cefazolin Sodium/Dextrose 2 gm (/ Premix) 50 mls @ 100 mls/hr IV Q8H [facility] Stop: 05/03/18 11:59 Last Admin: 05/03/18 04:27 Dose: 100 mls/hr Infusion: 05/02/18 19:16 Dose: 100 mls/hr Admin: 05/02/18 18:46 Dose: 100 mls/hr Lactated Ringer's (Ringers, Lactated) 1,000 mls @ 125 mls/hr IV ASDIRECTED [facility] Last Admin: 05/02/18 11:15 Dose: 125 mls/hr Ketorolac Tromethamine (Toradol) 15 mg IVPUSH Q6H PRN PRN Reason: Pain Last Admin: 05/03/18 03:13 Dose: 15 mg Admin: 05/02/18 21:08 Dose: 15 mg Levothyroxine Sodium (Levothyroxine) 125 mcg PO ACBRK [facility] Last Admin: 05/03/18 06:19 Dose: 125 mcg Lisinopril (Prinivil) 10 mg PO DAILY [facility] Magnesium Hydroxide (Milk Of Magnesia) 30 ml PO BID PRN PRN Reason: Constipation Morphine Sulfate (Morphine) 2 mg IVPUSH Q2H PRN PRN Reason: Breakthrough Pain Last Admin: 05/02/18 22:28 Dose: 2 mg Naloxone HCl (Narcan) 0.1 mg IVPUSH Q5M PRN PRN Reason: Oversedation Ondansetron HCl (Zofran) 4 mg IVPUSH Q6H PRN PRN Reason: Nausea/Vomiting Oxycodone/Acetaminophen (Percocet 325-5 Mg) 1 - 2 tab PO Q4H PRN PRN Reason: Pain Last Admin: 05/03/18 03:10 Dose: 2 tab Admin: 05/02/18 20:07 Dose: 2 tab Propranolol HCl (Inderal La) 60 mg PO DAILY [facility] Senna (Senna) 8.6 mg PO BID PRN PRN Reason: Constipation Simvastatin (Zocor) 20 mg PO BEDTIME [facility] Last Admin: 05/02/18 21:07 Dose: 20 mg Sodium Bicarbonate (Sodium Bicarbonate) 650 mg PO BID [facility] Last Admin: 05/02/18 21:07 Dose: 650 mg Sodium Chloride (Saline Flush) 10 ml FLUSH ASDIRECTED PRN PRN Reason: Keep Vein Open Tamsulosin HCl (Flomax) 0.4 mg PO DAILY@1200 [facility] - Assessment Assessment (Free Text/Narrative):: POD#1 - right TKA - Plan Plan (Free Text/Narrative):: 1. Hgb 12.3. 2. Discharge to home today if cleared by Hospitalist service. 3. ASA 325mg PO BID, frequent mobility, TEDs for VTE prophylaxis. 4. Outpatient P.T. The pt's case was discussed with Dr. Finley today.
[2018-05-03] MEDS: Citric Acid/Sodium Citrate Solution 30 ML Cup PO SCH ×3 (09:01→22:19)
[2018-05-03] MEDS: Famotidine 20 MG Tab PO SCH ×2 (09:02→22:21)
[2018-05-03] MEDS: Sodium Bicarbonate 650 MG Tab PO SCH ×2 (09:02→22:20)
[2018-05-03] MEDS: Aspirin 325 MG Tab.EC PO SCH ×2 (09:02→22:20)
[2018-05-03] MEDS: Propranolol 60 MG Cap.ER PO SCH (09:02)
[2018-05-03] MEDS: Lisinopril 10 MG Tab PO SCH (09:02)
[2018-05-03] MEDS: Tamsulosin 0.4 MG Cap.ER PO SCH ×2 (10:27→11:46)
[2018-05-03] MEDS: Docusate Sodium 100 MG Cap PO SCH ×2 (10:31→22:20)
[2018-05-03] MEDS: Finasteride 5 MG Tab PO SCH (11:46)
--- NOTE | 2018-05-03 11:59 | CR ---
Right knee: AP and lateral views of the right knee were obtained. Study obtained utilizing portable technique. Comparison: No prior right knee exam. Knee prosthesis is seen. Components are aligned. Soft tissue air noted from the surgical procedure. Underlying bony structures are intact. Impression: 1. Satisfactory postop radiographic appearance of right knee prosthesis. Diagnostic code #2 I agree with preliminary report from [facility], finalized at 05/02/18, 5:01 PM Central Time
--- NOTE | 2018-05-03 14:12 | CR ---
Chest: Portable view of the chest was obtained. Comparison: No prior chest x-ray. Heart size appears within normal limits for portable technique. Mild tortuosity of the thoracic aorta is seen as well as atherosclerotic calcification. Lungs are clear without acute parenchymal densities. Bony structures are grossly intact. Impression: 1. Nothing acute is identified on portable chest x-ray. Diagnostic code #2
[2018-05-03] MEDS ORDERED: Acetaminophen 325 MG Tab PO PRN (14:17)
[2018-05-03] MEDS: amLODIPine 5 MG Tab PO SCH (22:20)
[2018-05-03] MEDS: Simvastatin 20 MG Tab PO SCH (22:20)
[2018-05-04] MEDS: Acetaminophen/oxyCODONE 325-5 MG Tab PO PRN ×2 (06:11→11:15)
[2018-05-04] MEDS: Levothyroxine 125 MCG Tab PO SCH (06:12)
[2018-05-04] MEDS: Docusate Sodium 100 MG Cap PO SCH (08:59)
[2018-05-04] MEDS: Aspirin 325 MG Tab.EC PO SCH (08:59)
[2018-05-04] MEDS: Sodium Bicarbonate 650 MG Tab PO SCH (08:59)
[2018-05-04] MEDS: Famotidine 20 MG Tab PO SCH (08:59)
[2018-05-04] MEDS: Citric Acid/Sodium Citrate Solution 30 ML Cup PO SCH (08:59)
[2018-05-04] MEDS: Propranolol 60 MG Cap.ER PO SCH (09:02)
[2018-05-04] MEDS: Lisinopril 10 MG Tab PO SCH (09:03)
--- NOTE | 2018-05-04 10:11 | PCM.SURGPN ---
- General Info Date of Service: 05/04/18 POD#: 2 Functional Status: Reports: Pain Controlled, Tolerating Diet, Ambulating, Urinating, Incentive Spirometry, Other (The pt and daughter state pt is prepared for discharge to home today. The pt reports he is feeling much more alert today.) - Patient Data Vitals - Most Recent: Last Vital Signs Temp 99.9 F 05/04/18 07:34 Pulse 66 05/04/18 07:34 Resp 16 05/04/18 07:34 BP 147/98 H 05/04/18 09:03 Pulse Ox 94 L 05/04/18 07:34 Weight - Most Recent: 205 lb I&O - Last 24 Hours: Intake & Output 05/03/18 05/04/18 05/04/18 22:59 06:59 14:59 Intake Total 920 1000 Output Total 600 550 Balance 320 450 Lab Results Last 24 Hrs: Laboratory Results - last 24 hr 05/03/18 05/03/18 Range/Units 12:37 13:00 C-Reactive Protein 17.3 H* (<1.0) mg/dL Urine Color Yellow (Yellow) Urine Appearance Clear (Clear) Urine pH 7.0 (5.0-8.0) Ur Specific [place] 1.015 (1.005-1.030) Urine Protein 1+ H (Negative) Urine Glucose (UA) Negative (Negative) Urine Ketones Negative (Negative) Urine Occult Blood Trace-intact H (Negative) Urine Nitrite Negative (Negative) Urine Bilirubin Negative (Negative) Urine Urobilinogen 0.2 (0.2-1.0) Ur Leukocyte Esterase 1+ H (Negative) Urine RBC 5-10 H (0-5) /hpf Urine WBC 10-20 H (0-5) /hpf Ur Epithelial Cells 0-5 (0-5) /hpf Cystine Crystals Present Urine Bacteria Few (FEW) /hpf Hyaline Casts 0-5 (0-5) /lpf Urine Mucus Few (FEW) /hpf Med Orders - Current: Current Medications Acetaminophen (Tylenol) 650 mg PO Q4H PRN PRN Reason: Pain (Mild 1-3)/fever Last Admin: 05/03/18 16:03 Dose: 650 mg Amlodipine Besylate (Norvasc) 5 mg PO BEDTIME [facility] Last Admin: 05/03/18 22:20 Dose: 5 mg Aspirin (Ecotrin) 325 mg PO BID [facility] Last Admin: 05/04/18 08:59 Dose: 325 mg Bisacodyl (Dulcolax) 5 mg PO DAILY PRN PRN Reason: Constipation Citric Acid/Sodium Citrate (Bicitra Solution) 30 ml PO TID [facility] Last Admin: 05/04/18 08:59 Dose: 30 ml Cyclobenzaprine HCl (Flexeril) 10 mg PO TID PRN PRN Reason: Spasms Last Admin: 05/02/18 21:07 Dose: 10 mg Docusate Sodium (Colace) 100 mg PO BID [facility] Last Admin: 05/04/18 08:59 Dose: 100 mg Famotidine (Pepcid) 20 mg PO Q12H [facility] Last Admin: 05/04/18 08:59 Dose: 20 mg Finasteride (Proscar) 5 mg PO DAILY@1200 [facility] Last Admin: 05/03/18 11:46 Dose: Not Given Ketorolac Tromethamine (Toradol) 15 mg IVPUSH Q6H PRN PRN Reason: Pain Last Admin: 05/03/18 22:13 Dose: 15 mg Levothyroxine Sodium (Levothyroxine) 125 mcg PO ACBRK [facility] Last Admin: 05/04/18 06:12 Dose: 125 mcg Lisinopril (Prinivil) 10 mg PO DAILY [facility] Last Admin: 05/04/18 09:03 Dose: 10 mg Magnesium Hydroxide (Milk Of Magnesia) 30 ml PO BID PRN PRN Reason: Constipation Morphine Sulfate (Morphine) 2 mg IVPUSH Q2H PRN PRN Reason: Breakthrough Pain Last Admin: 05/02/18 22:28 Dose: 2 mg Naloxone HCl (Narcan) 0.1 mg IVPUSH Q5M PRN PRN Reason: Oversedation Ondansetron HCl (Zofran) 4 mg IVPUSH Q6H PRN PRN Reason: Nausea/Vomiting Oxycodone/Acetaminophen (Percocet 325-5 Mg) 1 - 2 tab PO Q4H PRN PRN Reason: Pain Last Admin: 05/04/18 06:11 Dose: 1 tab Propranolol HCl (Inderal La) 60 mg PO DAILY [facility] Last Admin: 05/04/18 09:02 Dose: 60 mg Senna (Senna) 8.6 mg PO BID PRN PRN Reason: Constipation Simvastatin (Zocor) 20 mg PO BEDTIME [facility] Last Admin: 05/03/18 22:20 Dose: 20 mg Sodium Bicarbonate (Sodium Bicarbonate) 650 mg PO BID [facility] Last Admin: 05/04/18 08:59 Dose: 650 mg Sodium Chloride (Saline Flush) 10 ml FLUSH ASDIRECTED PRN PRN Reason: Keep Vein Open Tamsulosin HCl (Flomax) 0.4 mg PO DAILY@1200 [facility] Last Admin: 05/03/18 11:46 Dose: Not Given Discontinued Medications Acetaminophen (Tylenol) 975 mg PO ONETIME [facility] Stop: 04/01/18 18:00 Acetaminophen (Tylenol) 975 mg PO ONETIME [facility] Last Admin: 05/02/18 11:47 Dose: 975 mg Aspirin (Ecotrin) 325 mg PO BID [facility] Bisacodyl (Dulcolax) 5 mg PO DAILY PRN PRN Reason: Constipation Bupivacaine HCl (Marcaine 0.25%) Confirm Administered Dose 30 ml .ROUTE .STK- MED ONE Stop: 04/01/18 08:28 Bupivacaine HCl (Marcaine 0.25%) Confirm Administered Dose 30 ml .ROUTE .STK- MED ONE Stop: 05/02/18 12:36 Last Admin: 05/02/18 14:46 Dose: 30 ml Cefazolin Sodium (Ancef) Confirm Administered Dose 2 gm .ROUTE .STK-MED ONE Stop: 04/01/18 08:28 Cefazolin Sodium (Ancef) Confirm Administered Dose 2 gm .ROUTE .STK-MED ONE Stop: 05/02/18 11:36 Last Admin: 05/02/18 14:40 Dose: 2 gm Cefazolin Sodium (Ancef) Confirm Administered Dose 2 gm .ROUTE .STK-MED ONE Stop: 05/02/18 12:36 Clobetasol Propionate (Clobetasol 0.05%) gm TOP BID PRN PRN Reason: psorosis Morphine Sulfate 8 mg/Epinephrine HCl 0.3 mg/Cefuroxime Sodium 750 mg/Ketorolac Tromethamine 30 mg/Sodium Chloride 27.9 ml 0 mg .XX ONETIME ONE Stop: 04/01/18 10:01 Morphine Sulfate 8 mg/Epinephrine HCl 0.3 mg/Cefuroxime Sodium 750 mg/Ketorolac Tromethamine 30 mg/Sodium Chloride 27.9 ml 0 mg .XX ONETIME ONE Stop: 05/02/18 07:09 Last Admin: 05/02/18 14:45 Dose: 788.3 mg Morphine Sulfate 8 mg/Epinephrine HCl 0.3 mg/Cefuroxime Sodium 750 mg/Ketorolac Tromethamine 30 mg/Sodium Chloride 27.9 ml 0 mg .XX ONETIME ONE Stop: 05/02/18 07:31 Last Admin: 05/02/18 18:24 Dose: Not Given Cyclobenzaprine HCl (Flexeril) 10 mg PO TID PRN PRN Reason: Spasms Cyclobenzaprine HCl (Flexeril) 10 mg PO TID PRN PRN Reason: Spasms Diphenhydramine HCl (Benadryl) 25 mg IVPUSH Q4H PRN PRN Reason: Nausea Diphenhydramine HCl (Benadryl) 25 mg IVPUSH Q6H PRN PRN Reason: Pruritis Stop: 05/02/18 18:00 Docusate Sodium (Colace) 100 mg PO BID [facility] Ephedrine Sulfate (Ephedrine Sulfate) 5 mg IVPUSH ASDIRECTED PRN PRN Reason: Hypotension Stop: 05/02/18 18:00 Ephedrine Sulfate (Ephedrine In Ns) Confirm Administered Dose 25 mg .ROUTE .STK- MED ONE Stop: 05/02/18 14:45 Epinephrine HCl (Adrenalin) Confirm Administered Dose 1 mg .ROUTE .STK-MED ONE Stop: 05/02/18 12:19 Fentanyl (Sublimaze) Confirm Administered Dose 100 mcg .ROUTE .STK-MED ONE Stop: 05/02/18 11:36 Fentanyl (Sublimaze) 50 mcg IVPUSH Q5M PRN PRN Reason: Pain Stop: 05/02/18 18:00 Hydromorphone HCl (Dilaudid) 0.5 mg IVPUSH ASDIRECTED PRN PRN Reason: Severe Pain Stop: 05/02/18 14:24 Lactated Ringer's (Ringers, Lactated) 1,000 mls @ 125 mls/hr IV ASDIRECTED [facility]HAEL Stop: 04/01/18 23:00 Cefazolin Sodium/Dextrose 2 gm (/ Premix) 50 mls @ 100 mls/hr IV Q8H [facility] Stop: 04/01/18 23:14 Cefazolin Sodium/Dextrose 2 gm (/ Premix) 50 mls @ 100 mls/hr IV Q8H [facility] Stop: 05/03/18 11:59 Last Admin: 05/03/18 10:31 Dose: 100 mls/hr Lactated Ringer's (Ringers, Lactated) 1,000 mls @ 125 mls/hr IV ASDIRECTED [facility] Last Admin: 05/02/18 11:15 Dose: 125 mls/hr Lidocaine HCl (Xylocaine-Mpf 1%) Confirm Administered Dose 4 mls @ as directed .ROUTE .STK-MED ONE Stop: 05/02/18 11:36 Lactated Ringer's (Ringers, Lactated) Confirm Administered Dose 1,000 mls @ as directed .ROUTE .STK-MED ONE Stop: 05/02/18 14:42 Lactated Ringer's (Ringers, Lactated) Confirm Administered Dose 1,000 mls @ as directed .ROUTE .STK-MED ONE Stop: 05/02/18 14:42 Iodine (Iodine 2% Mild Tincture) Confirm Administered Dose 30 ml .ROUTE .STK- MED ONE Stop: 04/01/18 08:28 Iodine (Iodine 2% Mild Tincture) Confirm Administered Dose 30 ml .ROUTE .STK- MED ONE Stop: 05/02/18 12:36 Last Admin: 05/02/18 14:37 Dose: 18 ml Ketamine HCl (Ketalar) Confirm Administered Dose 500 mg .ROUTE .STK-MED ONE Stop: 05/02/18 11:36 Ketorolac Tromethamine (Toradol) 15 mg IVPUSH Q6H PRN PRN Reason: Pain Ketorolac Tromethamine (Toradol) 15 mg IVPUSH Q6H PRN PRN Reason: Pain Lidocaine/Sodium Bicarbonate (Buffered Lidocaine 1% In Ns 8.4%) 0.25 ml IDERM ONETIME PRN PRN Reason: Prior to IV Start Stop: 04/01/18 18:00 Lidocaine/Sodium Bicarbonate (Buffered Lidocaine 1% In Ns 8.4%) 0.25 ml IDERM ONETIME PRN PRN Reason: Prior to IV Start Stop: 05/02/18 16:00 Last Admin: 05/02/18 11:09 Dose: 0.25 ml Magnesium Hydroxide (Milk Of Magnesia) 30 ml PO BID PRN PRN Reason: Constipation Midazolam HCl (Versed 1 Mg/Ml) Confirm Administered Dose 2 mg .ROUTE .STK-MED ONE Stop: 05/02/18 11:36 Morphine Sulfate (Morphine) 2 mg IVPUSH Q2H PRN PRN Reason: Breakthrough Pain Morphine Sulfate (Morphine) 2 mg IVPUSH Q2H PRN PRN Reason: Breakthrough Pain Naloxone HCl (Narcan) 0.1 mg IVPUSH Q5M PRN PRN Reason: Oversedation Ondansetron HCl (Zofran) 4 mg IVPUSH Q6H PRN PRN Reason: Nausea/Vomiting Ondansetron HCl (Zofran) 4 mg IVPUSH ONETIME PRN PRN Reason: Nausea/Vomiting Stop: 05/02/18 18:00 Oxycodone HCl (Oxycontin) 10 mg PO ONETIME [facility] Stop: 04/01/18 18:00 Oxycodone HCl (Oxycontin) 10 mg PO ONETIME [facility] Last Admin: 05/02/18 11:46 Dose: 10 mg Oxycodone/Acetaminophen (Percocet 325-5 Mg) 1 - 2 tab PO Q4H PRN PRN Reason: Pain Oxycodone/Acetaminophen (Percocet 325-5 Mg) 1 - 2 tab PO Q4H PRN PRN Reason: Pain Pregabalin (Lyrica) 50 mg PO ONETIME [facility] Stop: 04/01/18 18:00 Pregabalin (Lyrica) 50 mg PO ONETIME [facility] Last Admin: 05/02/18 11:45 Dose: 50 mg Propofol (Diprivan 20 Ml) Confirm Administered Dose 600 mg .ROUTE .STK-MED ONE Stop: 05/02/18 11:36 Propofol (Diprivan 20 Ml) Confirm Administered Dose 200 mg .ROUTE .STK-MED ONE Stop: 05/02/18 12:25 Propranolol HCl (Inderal La) 60 mg PO ONETIME [facility] Stop: 05/02/18 13:00 Last Admin: 05/02/18 11:43 Dose: 60 mg Ropivacaine (Naropin 0.5%) Confirm Administered Dose 30 ml .ROUTE .STK-MED ONE Stop: 05/02/18 12:19 Senna (Senna) 8.6 mg PO BID PRN PRN Reason: Constipation Sodium Chloride (Saline Flush) 10 ml FLUSH ASDIRECTED PRN PRN Reason: Keep Vein Open Stop: 04/01/18 18:00 Tranexamic Acid (Cyklokapron) Confirm Administered Dose 1,000 mg .ROUTE .STK- MED ONE Stop: 04/01/18 08:27 Tranexamic Acid (Cyklokapron) Confirm Administered Dose 1,000 mg .ROUTE .STK- MED ONE Stop: 05/02/18 12:36 Last Admin: 05/02/18 14:52 Dose: 1,000 mg Vancomycin HCl (Vancomycin) Confirm Administered Dose 1 gm .ROUTE .STK-MED ONE Stop: 04/01/18 08:27 Vancomycin HCl (Vancomycin) Confirm Administered Dose 1 gm .ROUTE .STK-MED ONE Stop: 05/02/18 12:36 Last Admin: 05/02/18 14:47 Dose: 1 gm - Exam Wound/Incisions: Dressing Dry and Intact, Other (Min shadowing at inferior portion of wound.) General: Alert, Cooperative, No Acute Distress Extremities: Other (Approx 105 degrees flexion at right knee. Jacinto's negative. NVS intact.) - Problem List Review Problem List Initiated/Reviewed/Updated: Yes - My Orders Last 24 Hours: Active Orders 24 hr Category Date Time Status Patient Status [ADT] Routine ADT 05/03/18 16:14 Active Ready for Discharge [RC] PER UNIT ROUTINE Care 05/04/18 10:07 Ordered URINALYSIS W/MICROSCOPIC [UA W/MICROSCOPIC] [URIN] Lab 05/03/18 12:37 Ordered Routine Acetaminophen [Tylenol] Med 05/03/18 14:17 Active 650 mg PO Q4H PRN Finasteride [Proscar] Med 05/03/18 12:00 Active 5 mg PO DAILY@1200 Tamsulosin [Flomax] Med 05/03/18 12:00 Active 0.4 mg PO DAILY@1200 Medication Orders Acetaminophen (Tylenol) 650 mg PO Q4H PRN PRN Reason: Pain (Mild 1-3)/fever Last Admin: 05/03/18 16:03 Dose: 650 mg Amlodipine Besylate (Norvasc) 5 mg PO BEDTIME [facility] Last Admin: 05/03/18 22:20 Dose: 5 mg Admin: 05/02/18 21:07 Dose: 5 mg Aspirin (Ecotrin) 325 mg PO BID [facility] Last Admin: 05/04/18 08:59 Dose: 325 mg Admin: 05/03/18 22:20 Dose: 325 mg Admin: 05/03/18 09:02 Dose: 325 mg Admin: 05/02/18 22:27 Dose: 325 mg Bisacodyl (Dulcolax) 5 mg PO DAILY PRN PRN Reason: Constipation Citric Acid/Sodium Citrate (Bicitra Solution) 30 ml PO TID [facility] Last Admin: 05/04/18 08:59 Dose: 30 ml Admin: 05/03/18 22:19 Dose: 30 ml Admin: 05/03/18 15:24 Dose: 30 ml Admin: 05/03/18 09:01 Dose: 30 ml Admin: 05/02/18 21:06 Dose: 30 ml Cyclobenzaprine HCl (Flexeril) 10 mg PO TID PRN PRN Reason: Spasms Last Admin: 05/02/18 21:07 Dose: 10 mg Docusate Sodium (Colace) 100 mg PO BID [facility] Last Admin: 05/04/18 08:59 Dose: 100 mg Admin: 05/03/18 22:20 Dose: 100 mg Admin: 05/03/18 10:31 Dose: Not Given Admin: 05/02/18 21:08 Dose: Not Given Famotidine (Pepcid) 20 mg PO Q12H [facility] Last Admin: 05/04/18 08:59 Dose: 20 mg Admin: 05/03/18 22:21 Dose: 20 mg Admin: 05/03/18 09:02 Dose: 20 mg Admin: 05/02/18 22:27 Dose: 20 mg Finasteride (Proscar) 5 mg PO DAILY@1200 [facility] Last Admin: 05/03/18 11:46 Dose: Ketorolac Tromethamine (Toradol) 15 mg IVPUSH Q6H PRN PRN Reason: Pain Last Admin: 05/03/18 22:13 Dose: 15 mg Admin: 05/03/18 14:44 Dose: 15 mg Admin: 05/03/18 03:13 Dose: 15 mg Admin: 05/02/18 21:08 Dose: 15 mg Levothyroxine Sodium (Levothyroxine) 125 mcg PO ACBRK [facility] Last Admin: 05/04/18 06:12 Dose: 125 mcg Admin: 05/03/18 06:19 Dose: 125 mcg Lisinopril (Prinivil) 10 mg PO DAILY [facility] Last Admin: 05/04/18 09:03 Dose: 10 mg Admin: 05/03/18 09:02 Dose: 10 mg Magnesium Hydroxide (Milk Of Magnesia) 30 ml PO BID PRN PRN Reason: Constipation Morphine Sulfate (Morphine) 2 mg IVPUSH Q2H PRN PRN Reason: Breakthrough Pain Last Admin: 05/02/18 22:28 Dose: 2 mg Naloxone HCl (Narcan) 0.1 mg IVPUSH Q5M PRN PRN Reason: Oversedation Ondansetron HCl (Zofran) 4 mg IVPUSH Q6H PRN PRN Reason: Nausea/Vomiting Oxycodone/Acetaminophen (Percocet 325-5 Mg) 1 - 2 tab PO Q4H PRN PRN Reason: Pain Last Admin: 05/04/18 06:11 Dose: 1 tab Admin: 05/03/18 09:01 Dose: 1 tab Admin: 05/03/18 03:10 Dose: 2 tab Admin: 05/02/18 20:07 Dose: 2 tab Propranolol HCl (Inderal La) 60 mg PO DAILY [facility] Last Admin: 05/04/18 09:02 Dose: 60 mg Admin: 05/03/18 09:02 Dose: 60 mg Senna (Senna) 8.6 mg PO BID PRN PRN Reason: Constipation Simvastatin (Zocor) 20 mg PO BEDTIME [facility] Last Admin: 05/03/18 22:20 Dose: 20 mg Admin: 05/02/18 21:07 Dose: 20 mg Sodium Bicarbonate (Sodium Bicarbonate) 650 mg PO BID [facility] Last Admin: 05/04/18 08:59 Dose: 650 mg Admin: 05/03/18 22:20 Dose: 650 mg Admin: 05/03/18 09:02 Dose: 650 mg Admin: 05/02/18 21:07 Dose: 650 mg Sodium Chloride (Saline Flush) 10 ml FLUSH ASDIRECTED PRN PRN Reason: Keep Vein Open Tamsulosin HCl (Flomax) 0.4 mg PO DAILY@1200 [facility] Last Admin: 05/03/18 11:46 Dose: Admin: 05/03/18 10:27 Dose: 0.4 mg - Assessment Assessment (Free Text/Narrative):: POD#2 - right TKA - Plan Plan (Free Text/Narrative):: 1. Significant improvements noted today. The pt is prepared for discharge to home. The pt has been cleared by the Hospitalist service also. 2. Discussed pain management at home - the pt will trial Percocet 1/2 to 1 tab PO every 6 hours prn pain as he tolerates this better. 3. ASA BID and frequent mobility again discussed with pt and daughter. 4. Outpatient P.T. The pt's case was discussed with Dr. Finley.
--- NOTE | 2018-05-04 10:18 | PCM.DCSUM1 ---
Discharge Summary - Hospital Course Brief History: Phillip is a 73 yo male who underwent right TKA with Dr. Finley on . The procedure was completed under spinal anesthesia with MAC. The pt tolerated the procedure well and was admitted to the Medical-Surgical Unit. The pt received Ancef danilo-operatively. He participated in P.T. and O.T. and progressed slowly on POD#1. He was allowed to WBAT and used a FWW for mobility. The pt's surgical wound was dressed with a Mepilex dressing and remained clean and dry. On POD#1, the pt was started on 325mg ASA BID for VTE prophylaxis. The pt used TEDs and SCDs also. On POD#1, the pt's hemoglobin was 12.3. Medical management was provided by the Hospitalist service and on POD #1 the pt's hospital course was remarkable for increased fatigue resulting in inability to meet therapy goals and for fever. This neccesitated an inpatient admission as the pt was unable to meet discharge criteria on POD#1. On POD#2, the pt's status significantly improved. He met inpatient therapy goals, was medically cleared by the Hospitalist service and was deemed appropriate for discharge to home with his family. - Discharge Data Discharge Date: 18 Discharge Disposition: Home, Self-Care 01 Condition: Good - Patient Summary/Data Consults: Consultations 05/02/18 07:08 OT Evaluation and Treatment [CONS] Routine PT Evaluation and Treatment [CONS] Routine 05/02/18 07:09 Consult to Physician [CONS] Routine - Patient Instructions Diet: Usual Diet as Tolerated Activity: Apply Ice, As Tolerated, Elevate Extremity, Full Weight Bearing Driving: Do Not Drive Showering/Bathing: May Shower Wound/Incision Care: Keep Operative Site/Wound Site Clean and Dry, Do NOT Change Dressing Notify Provider of: Fever, Increased Pain, Swelling and Redness, Drainage, Nausea and/or Vomiting Other/Special Instructions: Please get up and moving around every hour while awake. This helps to prevent blood clots. Please use your walker and have help with mobility as needed. Please take a 325mg ASPIRIN TWICE DAILY. This also helps to prevent blood clots. The aspirin is being used for blood clot prevention and not for pain management, so please do not miss a dose of the medication. At home, please complete the exercises that you learned during the Hospital stay. Schedule for physical therapy. Use the pain medication as needed. The medication may cause drowsiness and constipation. Contact your primary care provider for instructions if you are constipated. You may use a stool softener like docusate sodium or Colace 100mg twice daily and/or a laxative like Miralax daily for constipation. Increase your water and fiber intake while you are using the pain medication. Please try to wean from use of the pain medication as soon as able. Wear the KACY hose during the day and you may remove these at night. Elevate the limb to decrease swelling. Place ice to the area often. Place a towel between your skin and the blue pad. Use the incentive spirometer often. Take deep breaths throughout the day. Increase your protein intake while you are healing. If you have diabetes, please closely monitor your blood sugars and notify your primary care provider with abnormal values. Call the Clinic with questions or concerns - [phone]. - Discharge Plan Prescriptions/Med Rec: Acetaminophen/oxyCODONE [Percocet 325-5 MG] 1 - 2 tab PO Q6H PRN #60 tablet PRN Reason: Pain Aspirin [Ecotrin] 325 mg PO BID #84 tab.ec Home Medications: Home Meds Acetaminophen/oxyCODONE [Percocet 325-5 MG] 1 - 2 tab PO Q6H PRN 03/29/18 [ History] Amoxicillin 500 mg PO ASDIRECTED 03/29/18 [History] Aspirin [Ecotrin] 325 mg PO BID 03/29/18 [History] Clobetasol [Clobetasol 0.05%] 1 dose TOP BID PRN 03/29/18 [History] Finasteride 5 mg PO 1200 03/29/18 [History] Levothyroxine 125 mcg PO DAILY 03/29/18 [History] Lisinopril 10 mg PO DAILY 03/29/18 [History] Propranolol [Inderal] 60 mg PO DAILY 03/29/18 [History] Simvastatin [Zocor] 20 mg PO BEDTIME 03/29/18 [History] Tamsulosin [Flomax] 0.4 mg PO 1200 03/29/18 [History] amLODIPine Besylate [Amlodipine Besylate] 5 mg PO BEDTIME 03/29/18 [History] Citric Acid/Sodium Citrate [Sod Citrate-Citric Acid Soln] 30 ml PO TID 05/01/18 [History] Sodium Bicarbonate 650 mg PO BID 05/01/18 [History] Acetaminophen/oxyCODONE [Percocet 325-5 MG] 1 - 2 tab PO Q6H PRN #60 tablet 07/13 [Rx] Aspirin [Ecotrin] 325 mg PO BID #84 tab.ec 05/03/18 [Rx] Bisacodyl [Dulcolax] 5 mg PO DAILY PRN tablet 05/03/18 [Rx] Docusate Sodium [Colace] 100 mg PO BID cap 05/03/18 [Rx] Famotidine [Pepcid] 20 mg PO Q12H tablet 05/03/18 [Rx] Magnesium Hydroxide [Milk of Magnesia] 30 ml PO BID PRN cup 05/03/18 [Rx] Sennosides [Senna] 8.6 mg PO BID PRN tablet 05/03/18 [Rx] Referrals: Haydee Hyatt PA-C [Physician Sealer Operator] - 05/10/18 10:45 am (Please follow- up with Haydee Hyatt PA-C on May 10 at 10:45am and May 21 11:45am.) - Patient Data Vitals - Most Recent: Last Vital Signs Temp 99.9 F 05/04/18 07:34 Pulse 66 05/04/18 07:34 Resp 16 05/04/18 07:34 BP 147/98 H 05/04/18 09:03 Pulse Ox 94 L 05/04/18 07:34 Weight - Most Recent: 205 lb I&O - Last 24 hours: Intake & Output 05/03/18 05/04/18 05/04/18 22:59 06:59 14:59 Intake Total 920 1000 Output Total 600 550 Balance 320 450 Lab Results - Last 24 hrs: Laboratory Results - last 24 hr 05/03/18 05/03/18 Range/Units 12:37 13:00 C-Reactive Protein 17.3 H* (<1.0) mg/dL Urine Color Yellow (Yellow) Urine Appearance Clear (Clear) Urine pH 7.0 (5.0-8.0) Ur Specific [place] 1.015 (1.005-1.030) Urine Protein 1+ H (Negative) Urine Glucose (UA) Negative (Negative) Urine Ketones Negative (Negative) Urine Occult Blood Trace-intact H (Negative) Urine Nitrite Negative (Negative) Urine Bilirubin Negative (Negative) Urine Urobilinogen 0.2 (0.2-1.0) Ur Leukocyte Esterase 1+ H (Negative) Urine RBC 5-10 H (0-5) /hpf Urine WBC 10-20 H (0-5) /hpf Ur Epithelial Cells 0-5 (0-5) /hpf Cystine Crystals Present Urine Bacteria Few (FEW) /hpf Hyaline Casts 0-5 (0-5) /lpf Urine Mucus Few (FEW) /hpf Med Orders - Current: Current Medications Acetaminophen (Tylenol) 650 mg PO Q4H PRN PRN Reason: Pain (Mild 1-3)/fever Last Admin: 05/03/18 16:03 Dose: 650 mg Amlodipine Besylate (Norvasc) 5 mg PO BEDTIME [facility] Last Admin: 05/03/18 22:20 Dose: 5 mg Aspirin (Ecotrin) 325 mg PO BID [facility] Last Admin: 05/04/18 08:59 Dose: 325 mg Bisacodyl (Dulcolax) 5 mg PO DAILY PRN PRN Reason: Constipation Citric Acid/Sodium Citrate (Bicitra Solution) 30 ml PO TID [facility] Last Admin: 05/04/18 08:59 Dose: 30 ml Cyclobenzaprine HCl (Flexeril) 10 mg PO TID PRN PRN Reason: Spasms Last Admin: 05/02/18 21:07 Dose: 10 mg Docusate Sodium (Colace) 100 mg PO BID [facility] Last Admin: 05/04/18 08:59 Dose: 100 mg Famotidine (Pepcid) 20 mg PO Q12H [facility] Last Admin: 05/04/18 08:59 Dose: 20 mg Finasteride (Proscar) 5 mg PO DAILY@1200 [facility] Last Admin: 05/03/18 11:46 Dose: Not Given Ketorolac Tromethamine (Toradol) 15 mg IVPUSH Q6H PRN PRN Reason: Pain Last Admin: 05/03/18 22:13 Dose: 15 mg Levothyroxine Sodium (Levothyroxine) 125 mcg PO ACBRK [facility] Last Admin: 05/04/18 06:12 Dose: 125 mcg Lisinopril (Prinivil) 10 mg PO DAILY [facility] Last Admin: 05/04/18 09:03 Dose: 10 mg Magnesium Hydroxide (Milk Of Magnesia) 30 ml PO BID PRN PRN Reason: Constipation Morphine Sulfate (Morphine) 2 mg IVPUSH Q2H PRN PRN Reason: Breakthrough Pain Last Admin: 05/02/18 22:28 Dose: 2 mg Naloxone HCl (Narcan) 0.1 mg IVPUSH Q5M PRN PRN Reason: Oversedation Ondansetron HCl (Zofran) 4 mg IVPUSH Q6H PRN PRN Reason: Nausea/Vomiting Oxycodone/Acetaminophen (Percocet 325-5 Mg) 1 - 2 tab PO Q4H PRN PRN Reason: Pain Last Admin: 05/04/18 06:11 Dose: 1 tab Propranolol HCl (Inderal La) 60 mg PO DAILY [facility] Last Admin: 05/04/18 09:02 Dose: 60 mg Senna (Senna) 8.6 mg PO BID PRN PRN Reason: Constipation Simvastatin (Zocor) 20 mg PO BEDTIME [facility] Last Admin: 05/03/18 22:20 Dose: 20 mg Sodium Bicarbonate (Sodium Bicarbonate) 650 mg PO BID [facility] Last Admin: 05/04/18 08:59 Dose: 650 mg Sodium Chloride (Saline Flush) 10 ml FLUSH ASDIRECTED PRN PRN Reason: Keep Vein Open Tamsulosin HCl (Flomax) 0.4 mg PO DAILY@1200 [facility] Last Admin: 05/03/18 11:46 Dose: Not Given Discontinued Medications Acetaminophen (Tylenol) 975 mg PO ONETIME [facility] Stop: 04/01/18 18:00 Acetaminophen (Tylenol) 975 mg PO ONETIME [facility] Last Admin: 05/02/18 11:47 Dose: 975 mg Aspirin (Ecotrin) 325 mg PO BID [facility] Bisacodyl (Dulcolax) 5 mg PO DAILY PRN PRN Reason: Constipation Bupivacaine HCl (Marcaine 0.25%) Confirm Administered Dose 30 ml .ROUTE .STK- MED ONE Stop: 04/01/18 08:28 Bupivacaine HCl (Marcaine 0.25%) Confirm Administered Dose 30 ml .ROUTE .STK- MED ONE Stop: 05/02/18 12:36 Last Admin: 05/02/18 14:46 Dose: 30 ml Cefazolin Sodium (Ancef) Confirm Administered Dose 2 gm .ROUTE .STK-MED ONE Stop: 04/01/18 08:28 Cefazolin Sodium (Ancef) Confirm Administered Dose 2 gm .ROUTE .STK-MED ONE Stop: 05/02/18 11:36 Last Admin: 05/02/18 14:40 Dose: 2 gm Cefazolin Sodium (Ancef) Confirm Administered Dose 2 gm .ROUTE .STK-MED ONE Stop: 05/02/18 12:36 Clobetasol Propionate (Clobetasol 0.05%) gm TOP BID PRN PRN Reason: psorosis Morphine Sulfate 8 mg/Epinephrine HCl 0.3 mg/Cefuroxime Sodium 750 mg/Ketorolac Tromethamine 30 mg/Sodium Chloride 27.9 ml 0 mg .XX ONETIME ONE Stop: 04/01/18 10:01 Morphine Sulfate 8 mg/Epinephrine HCl 0.3 mg/Cefuroxime Sodium 750 mg/Ketorolac Tromethamine 30 mg/Sodium Chloride 27.9 ml 0 mg .XX ONETIME ONE Stop: 05/02/18 07:09 Last Admin: 05/02/18 14:45 Dose: 788.3 mg Morphine Sulfate 8 mg/Epinephrine HCl 0.3 mg/Cefuroxime Sodium 750 mg/Ketorolac Tromethamine 30 mg/Sodium Chloride 27.9 ml 0 mg .XX ONETIME ONE Stop: 05/02/18 07:31 Last Admin: 05/02/18 18:24 Dose: Not Given Cyclobenzaprine HCl (Flexeril) 10 mg PO TID PRN PRN Reason: Spasms Cyclobenzaprine HCl (Flexeril) 10 mg PO TID PRN PRN Reason: Spasms Diphenhydramine HCl (Benadryl) 25 mg IVPUSH Q4H PRN PRN Reason: Nausea Diphenhydramine HCl (Benadryl) 25 mg IVPUSH Q6H PRN PRN Reason: Pruritis Stop: 05/02/18 18:00 Docusate Sodium (Colace) 100 mg PO BID [facility] Ephedrine Sulfate (Ephedrine Sulfate) 5 mg IVPUSH ASDIRECTED PRN PRN Reason: Hypotension Stop: 05/02/18 18:00 Ephedrine Sulfate (Ephedrine In Ns) Confirm Administered Dose 25 mg .ROUTE .STK- MED ONE Stop: 05/02/18 14:45 Epinephrine HCl (Adrenalin) Confirm Administered Dose 1 mg .ROUTE .STK-MED ONE Stop: 05/02/18 12:19 Fentanyl (Sublimaze) Confirm Administered Dose 100 mcg .ROUTE .STK-MED ONE Stop: 05/02/18 11:36 Fentanyl (Sublimaze) 50 mcg IVPUSH Q5M PRN PRN Reason: Pain Stop: 05/02/18 18:00 Hydromorphone HCl (Dilaudid) 0.5 mg IVPUSH ASDIRECTED PRN PRN Reason: Severe Pain Stop: 05/02/18 14:24 Lactated Ringer's (Ringers, Lactated) 1,000 mls @ 125 mls/hr IV ASDIRECTED [facility] Stop: 04/01/18 23:00 Cefazolin Sodium/Dextrose 2 gm (/ Premix) 50 mls @ 100 mls/hr IV Q8H [facility] Stop: 04/01/18 23:14 Cefazolin Sodium/Dextrose 2 gm (/ Premix) 50 mls @ 100 mls/hr IV Q8H [facility] Stop: 05/03/18 11:59 Last Admin: 05/03/18 10:31 Dose: 100 mls/hr Lactated Ringer's (Ringers, Lactated) 1,000 mls @ 125 mls/hr IV ASDIRECTED [facility] Last Admin: 05/02/18 11:15 Dose: 125 mls/hr Lidocaine HCl (Xylocaine-Mpf 1%) Confirm Administered Dose 4 mls @ as directed .ROUTE .STK-MED ONE Stop: 05/02/18 11:36 Lactated Ringer's (Ringers, Lactated) Confirm Administered Dose 1,000 mls @ as directed .ROUTE .STK-MED ONE Stop: 05/02/18 14:42 Lactated Ringer's (Ringers, Lactated) Confirm Administered Dose 1,000 mls @ as directed .ROUTE .STK-MED ONE Stop: 05/02/18 14:42 Iodine (Iodine 2% Mild Tincture) Confirm Administered Dose 30 ml .ROUTE .STK- MED ONE Stop: 04/01/18 08:28 Iodine (Iodine 2% Mild Tincture) Confirm Administered Dose 30 ml .ROUTE .STK- MED ONE Stop: 05/02/18 12:36 Last Admin: 05/02/18 14:37 Dose: 18 ml Ketamine HCl (Ketalar) Confirm Administered Dose 500 mg .ROUTE .STK-MED ONE Stop: 05/02/18 11:36 Ketorolac Tromethamine (Toradol) 15 mg IVPUSH Q6H PRN PRN Reason: Pain Ketorolac Tromethamine (Toradol) 15 mg IVPUSH Q6H PRN PRN Reason: Pain Lidocaine/Sodium Bicarbonate (Buffered Lidocaine 1% In Ns 8.4%) 0.25 ml IDERM ONETIME PRN PRN Reason: Prior to IV Start Stop: 04/01/18 18:00 Lidocaine/Sodium Bicarbonate (Buffered Lidocaine 1% In Ns 8.4%) 0.25 ml IDERM ONETIME PRN PRN Reason: Prior to IV Start Stop: 05/02/18 16:00 Last Admin: 05/02/18 11:09 Dose: 0.25 ml Magnesium Hydroxide (Milk Of Magnesia) 30 ml PO BID PRN PRN Reason: Constipation Midazolam HCl (Versed 1 Mg/Ml) Confirm Administered Dose 2 mg .ROUTE .STK-MED ONE Stop: 05/02/18 11:36 Morphine Sulfate (Morphine) 2 mg IVPUSH Q2H PRN PRN Reason: Breakthrough Pain Morphine Sulfate (Morphine) 2 mg IVPUSH Q2H PRN PRN Reason: Breakthrough Pain Naloxone HCl (Narcan) 0.1 mg IVPUSH Q5M PRN PRN Reason: Oversedation Ondansetron HCl (Zofran) 4 mg IVPUSH Q6H PRN PRN Reason: Nausea/Vomiting Ondansetron HCl (Zofran) 4 mg IVPUSH ONETIME PRN PRN Reason: Nausea/Vomiting Stop: 05/02/18 18:00 Oxycodone HCl (Oxycontin) 10 mg PO ONETIME [facility] Stop: 04/01/18 18:00 Oxycodone HCl (Oxycontin) 10 mg PO ONETIME [facility] Last Admin: 05/02/18 11:46 Dose: 10 mg Oxycodone/Acetaminophen (Percocet 325-5 Mg) 1 - 2 tab PO Q4H PRN PRN Reason: Pain Oxycodone/Acetaminophen (Percocet 325-5 Mg) 1 - 2 tab PO Q4H PRN PRN Reason: Pain Pregabalin (Lyrica) 50 mg PO ONETIME [facility] Stop: 04/01/18 18:00 Pregabalin (Lyrica) 50 mg PO ONETIME [facility] Last Admin: 05/02/18 11:45 Dose: 50 mg Propofol (Diprivan 20 Ml) Confirm Administered Dose 600 mg .ROUTE .STK-MED ONE Stop: 05/02/18 11:36 Propofol (Diprivan 20 Ml) Confirm Administered Dose 200 mg .ROUTE .STK-MED ONE Stop: 05/02/18 12:25 Propranolol HCl (Inderal La) 60 mg PO ONETIME [facility] Stop: 05/02/18 13:00 Last Admin: 05/02/18 11:43 Dose: 60 mg Ropivacaine (Naropin 0.5%) Confirm Administered Dose 30 ml .ROUTE .STK-MED ONE Stop: 05/02/18 12:19 Senna (Senna) 8.6 mg PO BID PRN PRN Reason: Constipation Sodium Chloride (Saline Flush) 10 ml FLUSH ASDIRECTED PRN PRN Reason: Keep Vein Open Stop: 04/01/18 18:00 Tranexamic Acid (Cyklokapron) Confirm Administered Dose 1,000 mg .ROUTE .STK- MED ONE Stop: 04/01/18 08:27 Tranexamic Acid (Cyklokapron) Confirm Administered Dose 1,000 mg .ROUTE .STK- MED ONE Stop: 05/02/18 12:36 Last Admin: 05/02/18 14:52 Dose: 1,000 mg Vancomycin HCl (Vancomycin) Confirm Administered Dose 1 gm .ROUTE .STK-MED ONE Stop: 04/01/18 08:27 Vancomycin HCl (Vancomycin) Confirm Administered Dose 1 gm .ROUTE .STK-MED ONE Stop: 05/02/18 12:36 Last Admin: 05/02/18 14:47 Dose: 1 gm
[2018-05-04] MEDS: Finasteride 5 MG Tab PO SCH (11:15)
[2018-05-04] MEDS: Tamsulosin 0.4 MG Cap.ER PO SCH (11:15)
--- NOTE | 2018-05-08 10:12 | PCM.OPNOTE ---
- General Post-Op/Procedure Note Date of Surgery/Procedure: 05/02/18 Operative Procedure(s): right total knee arthroplasty Pre Op Diagnosis: right knee osteoarthrosis Post-Op Diagnosis: Same Anesthesia Technique: Local, MAC, Spinal Primary Surgeon: Odilon Finley Anesthesia Provider: Fariba Sanchez Rotating Field Assembler: Haydee Hyatt Rotating Field Assembler: Sepideh Diane EBDebby in mLs: 500 Complications: None Condition: Good Free Text/Narrative:: size 5 size 6 tibia [id number]
--- NOTE | 2018-05-08 10:50 | OR ---
DATE OF OPERATION: 05/02/2018 SURGEON: Odilon Finley MD OPERATION PERFORMED: Right total knee arthroplasty. PREOPERATIVE DIAGNOSIS: Right knee osteoarthrosis. POSTOPERATIVE DIAGNOSIS: Right knee osteoarthrosis. ANESTHESIA: Local MAC with spinal. ANESTHESIA PROVIDER: Linette Osborne. ASSISTANTS: Haydee Hyatt PA-C and and Sepideh Diane LPN. ESTIMATED BLOOD LOSS: 500 mL. COMPLICATIONS: None. CONDITION: Stable. IMPLANTS: 1. Argyle size 5 press-fit CR femur. 2. Judith size 6 press-fit tibial base plate. 3. Judith size 6, 9 mm CS polyethylene insert. 4. Argyle size 35 x 10 mm asymmetric press-fit patella. DESCRIPTION OF PROCEDURE: The patient was identified in the preop holding area. Proper site was marked and identified by the surgeon. The patient was taken back to the operating theater. After adequate anesthesia, the patient's right lower extremity had a nonsterile tourniquet applied and it was then sterilely prepped and draped in the usual sterile fashion. OR timeout was performed. The patient received 2 g IV Ancef. At this time, right lower extremity was exsanguinated. Tourniquet was insufflated to 300 mmHg. Standard medial parapatellar incision was made. Medial parapatellar arthrotomy was created. Deep fibers of the MCL were raised and anterior fat pad was resected. At this time, attention was turned to the patella. Patella measured 26, it was resected to a 16 for a 35 x 10 mm patella. Drill holes were then drilled and found to be in adequate position. The drill was then drilled in the distal femur and the intramedullary distal femoral cutting guide was then placed. 8 mm was resected off the distal femur and was found to be an adequate resection. Sizing guide was placed. It was found to be a size 5 femur that was shown on the implant record at the beginning of this dictation. The drill holes were drilled for the epicondylar axis using Whitesides line and epicondyles as reference. At this time, the 4-in-1 cutting block was placed. An anterior posterior and anterior and posterior chamfer cuts were then completed. The correct size box cut was then placed and the box cut was completed and found to be an adequate resection. Attention was turned to the tibia. The posterior medial lateral retractors were placed. The extramedullary tibial guide was placed. It was placed in the old footprint of the ACL. It was aligned with the center of the ankle and 0 degrees of slope, 9 mm was then resected off the unaffected lateral side. There was found to be an acceptable reduction. At this time, posterior osteophytes were removed along with medial and lateral meniscus. A trial implant was placed with a correct sized tibia that was mentioned at the beginning of the dictation. A Judith size 6, 9 mm CS polyethylene was then placed. The patient's knee was brought through range of motion. The patella was tracking centrally and was stable to varus and valgus stress. Alignment was found to be roughly at 0 degrees. The tibia was stamped and drilled in proper rotation. The universal tibial base plate was impacted in place. Next, the Judith size 5 press-fit CR femur press-fit into place and the Argyle size 6, 9 mm CS polyethylene was placed. The patient's knee was brought into full extension. The patella was then press-fit in place at this time. Tourniquet was deflated. One liter dilute Betadine solution was irrigated through the knee along with 3 L of pulse lavage irrigation with Ancef. Periarticular injection was then completed. The patient's knee was brought through a range of motion. Knee was found to be stable to varus valgus stress, the patella was tracking centrally with full range of motion. At this time, a #2 barbed suture was used for closure of the medial parapatellar arthrotomy. Topical tranexamic acid was placed. 2-0 Vicryl was used subcutaneously, a running 3-0 Monocryl was used subcuticularly. The patient tolerated the procedure well and was sent to the PACU in stable condition. [facility] /[id number] DEIDRE
== END 2018-05-04 15:05 | disposition home or self-care (01) | DRG 470 ==
LOC: JD.SDS 10:43 → JD.MS 10:43 → JD.SDS 05-03 12:14 → JD.MS 05-03 12:14 → JD.SDS 05-03 16:13 → JD.MS 05-03 16:14
PROVIDERS: ADMIT Orthopaedic Surgery; ATTEND Orthopaedic Surgery
PROC: 0SRC0JA Replacement of Right Knee Joint with Synthetic Substitute, Uncemented, Open Approach (ICD-10-PCS; principal; 2018-05-02)
PROC: 3E0T3BZ Introduction of Anesthetic Agent into Peripheral Nerves and Plexi, Percutaneous Approach (ICD-10-PCS; 2018-05-02)
DX: M17.11 Unilateral primary osteoarthritis, right knee (principal); G62.9 Polyneuropathy, unspecified; M25.761 Osteophyte, right knee; I73.00 Raynaud's syndrome without gangrene; R35.1 Nocturia; G25.0 Essential tremor; G47.33 Obstructive sleep apnea (adult) (pediatric); E78.5 Hyperlipidemia, unspecified; R53.82 Chronic fatigue, unspecified; E03.9 Hypothyroidism, unspecified; L40.9 Psoriasis, unspecified; I10 Essential (primary) hypertension; F17.220 Nicotine dependence, chewing tobacco, uncomplicated; N40.1 Benign prostatic hyperplasia with lower urinary tract symptoms; R39.12 Poor urinary stream; H54.7 Unspecified visual loss; E78.00 Pure hypercholesterolemia, unspecified; E89.2 Postprocedural hypoparathyroidism; I44.7 Left bundle-branch block, unspecified; Z79.899 Other long term (current) drug therapy; Z87.442 Personal history of urinary calculi; Z79.82 Long term (current) use of aspirin
CPT/HCPCS: 27447; 36415 ×2; 71045; 73560; 80051; 80053; 81001; 85025; 85027; 86140; 97110 ×3; 97116 ×2; 97162; 97165; 97535 ×2; A9270 ×25; C1776 ×4; J0171 ×2; J0690 ×5; J0697; J1885 ×4; J2001; J2250; J2270 ×2; J2795; J3010; J3370; J3490; J7050; J7120 ×3; 01402; 64447; 97530-GP; J2704